=== PATIENT | male | born 1945 | race African-American/Black ===

== ENCOUNTER 2018-08-25 07:11 | Inpatient (IN) ==
--- NOTE | 2018-08-25 07:35 | ED ---
HPI General Chief Complaint: Abdominal Pain Stated Complaint: stomach complaint Time Seen by Provider: 08/25/18 07:35 History of Present Illness HPI narrative: Patient presents to the emergency department complaining of abdominal pain. Pain is described as being diffuse, started approximately 3 weeks ago, decreased appetite, pain is intermittent, approximately 30 minutes to 1 hour duration, no alleviating or aggravating factors. States he has had similar pain like this in the past. Is also reporting intermittent swollen neck this been present for "a while." He denies fever, chills, nausea, vomiting , diarrhea, constipation, difficulty swallowing, difficulty breathing, or recent travel. He is unsure if he has lost any weight. Related Data Home Medications Medication Instructions Recorded Confirmed No Known Home Medications 08/25/18 08/25/18 Allergies Allergy/AdvReac Type Severity Reaction Status Date / Time No Known Allergies Allergy Verified 08/25/18 07:17 Review of Systems ROS: all other systems reviewed are negative [facility] Social History Social History Substance History: Active Abuse Smoking Status: Current every day smoker Tobacco Type: Cigarettes How Often Do You Have a Drink Containing Alcohol: Never Recent Travel in [facility] within the Last 8 Weeks: No Recent Out of Country Travel within the Last 8 Weeks: No Substance Abuse Detail Marijuana: Substance Use Status: Active Route Used Substance Abuse: Inhalation Substance Frequency: daily Immunization History Tetanus Immunization: Unsure Exam Narrative Exam Narrative: GENERAL: No acute distress. SKIN: Focused skin assessment warm/dry. HEAD: Atraumatic. Normocephalic. EYES: Pupils equal and round. No scleral icterus. No injection or drainage. ENT: No nasal bleeding or discharge. Mucous membranes pink and moist. NECK: Trachea midline. No JVD. swelling noted anterior neck CARDIOVASCULAR: Regular rate and rhythm. No murmur appreciated. RESPIRATORY: No accessory muscle use. Clear to auscultation. Breath sounds equal bilaterally. GASTROINTESTINAL: Abdomen soft, right upper quadrant epigastric area tender, nondistended. + cholecystectomy surgical scar MUSCULOSKELETAL: No obvious deformities. No clubbing. No cyanosis. No edema. NEUROLOGICAL: Awake and alert. No obvious cranial nerve deficits. Motor grossly within normal limits. Normal speech. PSYCHIATRIC: Appropriate mood and affect; insight and judgment normal. Course Initial Documented Vital Signs Temperature 98.9 F 08/25/18 07:13 Pulse Rate 86 08/25/18 07:13 Respiratory Rate 16 08/25/18 07:13 Blood Pressure 161/70 H 08/25/18 07:13 Pulse Oximetry 98 08/25/18 07:13 Last Documented Vital Signs Temperature 98.9 F 08/25/18 07:13 Pulse Rate 93 H 08/25/18 11:35 Respiratory Rate 20 08/25/18 11:35 Blood Pressure 112/57 L 08/25/18 11:35 Pulse Oximetry 97 08/25/18 11:35 Medical Decision Making MDM Narrative Medical decision making narrative: Patient presents to the emergency department complaining of abdominal pain and neck swelling. Patient placed on a cardiac rehab nurse, continuous pulse ox, and IV access obtained. At the time of my assessment patient states that he does not eat need any medication for pain. Labs, ECG, and CT abdomen and pelvis and CT neck both with IV contrast ordered. Spoke to radiologist who reviewed the patient's CT scan. He does not believe that the air in the biliary tract is pathologic. Thinks it may be secondary to status post cholecystectomy. I have admitted the patient to the hospitalist for metastatic workup as patient has no primary care provider. Medical Screen Exam Complete: Yes Emergency Medical Condition: Yes Lab Data Result diagrams: 08/25/18 07:43 08/25/18 07:43 Lab Results 08/25/18 08/25/18 08/25/18 Range/Units 07:43 07:43 07:43 WBC 9.1 (4.0-11.0) th/mm3 RBC 3.73 L (4.50-5.90) mil/mm3 Hgb 10.1 L (13.0-17.0) gm/dL Hct 31.4 L (39.0-51.0) % MCV 84.2 (80.0-100.0) fL MCH 27.1 (27.0-34.0) pg MCHC 32.2 (32.0-36.0) % RDW 13.3 (11.6-17.2) % Plt Count 332 (150-450) th/mm3 MPV 6.1 L (7.0-11.0) fL Neut % (Auto) 63.7 (16.0-70.0) % Lymph % (Auto) 21.6 (9.0-44.0) % [place] % (Auto) 14.2 H (0.0-8.0) % Eos % (Auto) 0.3 (0.0-4.0) % Baso % (Auto) 0.2 (0.0-2.0) % Neut # (Auto) 5.8 (1.8-7.7) th/mm3 Lymph # (Auto) 2.0 (1.0-4.8) th/mm3 [place] # (Auto) 1.3 H (0.0-0.9) th/mm3 Eos # (Auto) 0.0 (0.0-0.4) th/mm3 Baso # (Auto) 0.0 (0.0-0.2) th/mm3 WBC Differential . Differential Comment Auto diff final PT 12.7 H (9.8-11.6) sec INR 1.3 Ratio APTT 26.6 (24.3-30.1) sec Sodium 137 (136-145) meq/L Potassium 3.9 (3.5-5.1) meq/L Chloride 103 (98-107) meq/L Carbon Dioxide 26.5 (21.0-32.0) meq/L Anion Gap 8 (5-15) meq/L BUN 14 (7-18) mg/dL Creatinine 0.89 (0.60-1.30) mg/dL Estimated GFR Greater than 89 (>89) mL/min Random Glucose 109 H (74-106) mg/dL Calcium 8.5 (8.5-10.1) mg/dL Magnesium 2.2 (1.5-2.5) mg/dL Total Bilirubin 1.1 H (0.2-1.0) mg/dL AST 86 H (15-37) U/L ALT 43 (12-78) U/L Alkaline Phosphatase 190 H (45-117) U/L Troponin I Less than 0.02 L (0.02-0.05) ng/mL Total Protein 7.4 (6.4-8.2) g/dL Albumin 2.9 L (3.4-5.0) g/dL Lipase 70 L (73-393) U/L Imaging Data Radiologist's impression: Abdomen/Pelvis CT 08/25/18 07:30 CONCLUSION: 1. Numerous scattered new low-attenuation liver lesions characteristic of metastasis. 2. Evidence of prior bowel resection. 3. Status post cholecystectomy. There is a small amount of air in the central biliary system. Soft Tissue Neck CT 08/25/18 07:30 CONCLUSION: 1. Probable large goiter with both cystic and solid elements largest on the left neck. 2. Correlation suggested. ECG Data Attestation: I personally reviewed and interpreted this ECG as follows: (Sinus rhythm, rate 82, left axis deviation, QTC 393, normal intervals, wave in lead III and aVF (similar to ECG on 03/29/12)) Discharge Plan Discharge Disposition Patient Disposition: 30 Still Patient Discharge Condition Condition: Stable Discharge Details Diagnosis: Liver metastasis, Thyroid mass Physicians Team ED Provider: Gricel Delong Primary Care Provider: Primary Care Diana Morales Attending Provider: Gayle Rey Status ED Status: Admitted Observation Patient
[2018-08-25 07:55] LABS: Baso % (Auto) 0.2 % (0.0-2.0); Eos % (Auto) 0.3 % (0.0-4.0); Hematocrit 31.4 % (39.0-51.0); Hemoglobin 10.1 gm/dL (13.0-17.0); Lymph % (Auto) 21.6 % (9.0-44.0); Mean Corpuscular HGB Conc 32.2 % (32.0-36.0); Mean Corpuscular Hemoglobin 27.1 pg (27.0-34.0); Mean Corpuscular Volume 84.2 fL (80.0-100.0); Mean Platelet Volume 6.1 fL (7.0-11.0); Mono # (Auto) 1.3 th/mm3 (0.0-0.9); Mono % (Auto) 14.2 % (0.0-8.0); Neut # (Auto) 5.8 th/mm3 (1.8-7.7); Neut % (Auto) 63.7 % (16.0-70.0); Platelet Count 332 th/mm3 (150-450); Red Blood Count 3.73 mil/mm3 (4.50-5.90); Red Cell Distribution Width 13.3 % (11.6-17.2); White Blood Count 9.1 th/mm3 (4.0-11.0)
[2018-08-25 08:04] LABS: Activated Partial Thrombo Time 26.6 sec (24.3-30.1); INR 1.3 Ratio; Prothrombin Time 12.7 sec (9.8-11.6)
[2018-08-25 08:07] LABS: Alanine Aminotransferase 43 U/L (12-78); Albumin 2.9 g/dL (3.4-5.0); Anion Gap 8 meq/L (5-15); Aspartate Aminotransferase 86 U/L (15-37); Blood Urea Nitrogen 14 mg/dL (7-18); Calcium 8.5 mg/dL (8.5-10.1); Carbon Dioxide 26.5 meq/L (21.0-32.0); Chloride 103 meq/L (98-107); Glomerular Filtration Rate Greater Than 89 mL/min (>89); Glucose,Random 109 mg/dL (74-106); Lipase 70 U/L (73-393); Magnesium 2.2 mg/dL (1.5-2.5); Potassium 3.9 meq/L (3.5-5.1); Sodium 137 meq/L (136-145)
[2018-08-25 08:12] LABS: Alkaline Phosphatase 190 U/L (45-117); Total Protein 7.4 g/dL (6.4-8.2)
--- NOTE | 2018-08-25 10:00 | CT ---
EXAM DATE: 08/25/2018 9:48 AM EDT AGE/SEX: 72 years / Male INDICATIONS: Right upper quadrant pain. CLINICAL DATA: This is the patient's initial encounter. Patient reports that signs and symptoms have been present for 3 weeks and indicates a pain score of 6/10. MEDICAL/SURGICAL HISTORY: None. Cholecystectomy. ORAL CONTRAST: No oral contrast ingested. RADIATION DOSE: 5.79 CTDI (mGy) COMPARISON: [facility] [place], CT ABDOMEN & PELVIS W CONTRAST, 03/26/2012. . TECHNIQUE: Multiple contiguous axial images were obtained through the abdomen and pelvis following b olus infusion of 94 ml Omnipaque 350 (iohexol) nonionic water-soluble contrast as a cumulative dose for multiple exams. No oral contrast ingested. Using automated exposure control and adjustment of t he mA and/or kV according to patient size, radiation dose was kept as low as reasonably achievable to obtain optimal diagnostic quality images. DICOM format image data is available electronically for r eview and comparison. FINDINGS: Lower Lungs: The visualized lower lungs are clear. Liver: There are multiple new low-attenuation lesions throughout the right and left lobe of the liver . There are numerous scattered lesions with several areas of low attenuation measuring up to 4 cm. Th ere is no intrahepatic ductal dilatation. Patient is status post cholecystectomy. There is a small am ount of air in the central biliary system. Spleen: Homogeneous density without enlargement. Pancreas: Unremarkable without mass or calcification. Kidneys: Normal in size and shape. No evidence of mass or hydronephrosis. Adrenal Glands: Unremarkable. Aorta: The aorta and proximal iliac vessels are grossly unremarkable without aneurysmal dilation. Bowel/Mesentery: No oral contrast was given limiting the sensitivity exam. There are postoperative c hanges with anastomotic martita in the small bowel. Abdominal Wall: Intact. Retroperitoneum: No evidence of adenopathy in the retrocrural, para-aortic, or deep pelvic regions. Bladder: Contours are smooth. Reproductive Organs: No abnormal masses or calcifications seen. Inguinal: The inguinal region is unremarkable without evidence of adenopathy. Bony Structures: Unremarkable. CONCLUSION: 1. Numerous scattered new low-attenuation liver lesions characteristic of metastasis. 2. Evidence of prior bowel resection. 3. Status post cholecystectomy. There is a small amount of air in the central biliary system. Electronically signed by: Surinder Crooks MD 08/25/2018 9:58 AM EDT
--- NOTE | 2018-08-25 10:01 | CT ---
EXAM DATE: 08/25/2018 9:51 AM EDT AGE/SEX: 72 years / Male INDICATIONS: Bilateral swelling of neck. CLINICAL DATA: This is the patient's initial encounter. Patient reports that signs and symptoms have been present for 2 months and indicates a pain score of 6/10. MEDICAL/SURGICAL HISTORY: None. Cholecystectomy. RADIATION DOSE: 13.60 CTDI (mGy) COMPARISON: No prior exams available for comparison. TECHNIQUE: Helical acquisition was performed using a multirow detector CT scanner during the adminis tration of 94 ml Omnipaque 350 (iohexol) nonionic water-soluble contrast as a cumulative dose for mu ltiple exams. Using automated exposure control and adjustment of the mA and/or kV according to patie nt size, radiation dose was kept as low as reasonably achievable to obtain optimal diagnostic quality images. DICOM format image data is available electronically for review and comparison. FINDINGS: Nasopharynx and oropharynx unremarkable. The base of the tongue is symmetric. Right neck: There is no suspicious adenopathy in the right neck. Patient is a very prominent thyroid including both right an d left lobes and appears to be a goiter. Left neck: There is no suspicious adenopathy Large nodular thyroid suspicious for goiter in this 72-year-old. Correlation suggested. CONCLUSION: 1. Probable large goiter with both cystic and solid elements largest on the left neck. 2. Correlation suggested. Electronically signed by: Pb Dowling MD 08/25/2018 9:59 AM EDT
[2018-08-25] MEDS ORDERED: Bisacodyl 10 MG Supp RECTAL PRN (12:11)
--- NOTE | 2018-08-25 12:17 | P.HP ---
History of Present Illness Primary Care Physician: No Primary Care Physician Chief Complaint: abd pain History of Present Illness: Patient is a pleasant frail 72 yo AA male, who presented to the emergency department complaining of abdominal pain. Pain is described as being diffuse, started approximately 3 weeks ago, associated with decreased appetite, pain is intermittent, approximately 30 minutes to 1 hour duration, no alleviating or aggravating factors. States he has had similar pain like this in the past. Is also reporting intermittent swollen neck this been present for "a while." Says he has lost weight but doemst know kow much , says clothes are loose. He denies fever, chills, nausea, vomiting, diarrhea, constipation, difficulty swallowing. He is breathing well no wheezing and he is satting well on room air. Review of Systems All other systems reviewed negative except as stated in HPI PMFSH - History History Provided By: Patient - Medical History Medical History: Medical History (Last Reviewed 08/25/18 @ 16:33 by Gayle Rey MD) Gallstones - Surgical History Surgical History: Surgical History (Last Updated 08/25/18 @ 16:33 by Gayle Rey MD) Cholecystitis (Acute) - Family History Family History: Family History (Last Updated 08/25/18 @ 16:34 by Gayle Rey MD) Other Family history normal - Social History I have reviewed the patient's Social History: Yes - Tobacco History Tobacco Use In Past 30 Days: Yes Smoking Status: Current every day smoker Tobacco Type: Cigarettes (1 pack per month) - Alcohol History How Often Do You Have a Drink Containing Alcohol: Never (quit 2 year ago) - Substance Use History Substance History: Active Abuse - Substance Use Type Marijuana Status: Active Route Used: Inhalation Frequency: daily - Travel History Recent Travel in the [place] Within the Last 8 Weeks: No Recent Travel Out of the Country Within the Last 8 Weeks: No - Immunization History Tetanus Immunization: Unsure Medications and Allergies Active Medications: Active Medications Al Hydroxide/Mg Hydroxide (Milk Of Magnesia Liq) 30 ml PO Q12H PRN PRN Reason: Mild Constipation Bisacodyl (Dulcolax Supp) 10 mg RECTAL DAILY PRN PRN Reason: SEVERE CONSITIPATION Lactulose (Lactulose Liq) 30 ml PO DAILY PRN PRN Reason: SEVERE CONSITIPATION Senna/Docusate Sodium (Alexandra-Colace) 1 tab PO BID ELIGIO Sennosides (Senokot) 17.2 mg PO Q12H PRN PRN Reason: Moderate Constipation Sodium Chloride (Ns Flush) 2 ml IV.FLUSH PRN PRN PRN Reason: FLUSH AFTER USING IV ACCESS Allergies Allergy/AdvReac Type Severity Reaction Status Date / Time No Known Allergies Allergy Verified 08/25/18 07:17 Home Medications Medication Instructions Recorded Confirmed Type No Known Home Medications 08/25/18 08/25/18 History Exam Vital signs: Vital Signs 08/25/18 07:13 08/25/18 07:48 08/25/18 07:53 Temperature 98.9 F Pulse Rate 86 82 82 Respiratory Rate 16 20 14 Blood Pressure 161/70 H 133/66 133/66 Pulse Oximetry 98 98 98 08/25/18 11:35 Temperature Pulse Rate 93 H Respiratory Rate 20 Blood Pressure 112/57 L Pulse Oximetry 97 Intake & Output 08/24/18 08/25/18 08/25/18 18:59 06:59 18:59 Weight 58.967 kg Narrative: GENERAL: Pleasant frail cachectic AA elderly male, in bed, appesrs in nad. SKIN: Warm and dry. HEAD: Bitemporal waisting. Atraumatic. Normocephalic. EYES: Pupils equal and round. No scleral icterus. No injection or drainage. ENT: No nasal bleeding or discharge. Mucous membranes dry. NECK: Trachea midline. No JVD. CARDIOVASCULAR: Regular rate and rhythm. RESPIRATORY: No accessory muscle use. Clear to auscultation. Breath sounds equal bilaterally. GASTROINTESTINAL: Abdomen soft, diffuse tenderness. MUSCULOSKELETAL: Weak results engineer. Muscle waisting. Extremities without clubbing, cyanosis, or edema. No obvious deformities. NEUROLOGICAL: Awake and alert. No obvious cranial nerve deficits. Motor grossly within normal limits. Five out of 5 muscle strength in the arms and legs. Normal speech. PSYCHIATRIC: Appropriate mood and affect; insight and judgment normal. Results - Labs CBC & Chem 7: 08/25/18 07:43 08/25/18 07:43 Labs: Laboratory Results - last 24 hr 08/25/18 08/25/18 08/25/18 07:43 07:43 07:43 WBC 9.1 RBC 3.73 L Hgb 10.1 L Hct 31.4 L MCV 84.2 MCH 27.1 MCHC 32.2 RDW 13.3 Plt Count 332 MPV 6.1 L Neut % (Auto) 63.7 Lymph % (Auto) 21.6 [place] % (Auto) 14.2 H Eos % (Auto) 0.3 Baso % (Auto) 0.2 Neut # (Auto) 5.8 Lymph # (Auto) 2.0 [place] # (Auto) 1.3 H Eos # (Auto) 0.0 Baso # (Auto) 0.0 WBC Differential . Differential Comment Auto diff final PT 12.7 H INR 1.3 APTT 26.6 Sodium 137 Potassium 3.9 Chloride 103 Carbon Dioxide 26.5 Anion Gap 8 BUN 14 Creatinine 0.89 Estimated GFR Greater than 89 Random Glucose 109 H Calcium 8.5 Magnesium 2.2 Total Bilirubin 1.1 H AST 86 H ALT 43 Alkaline Phosphatase 190 H Troponin I Less than 0.02 L Total Protein 7.4 Albumin 2.9 L Lipase 70 L - Imaging Impressions Abdomen/Pelvis CT 08/25/18 07:30 CONCLUSION: 1. Numerous scattered new low-attenuation liver lesions characteristic of metastasis. 2. Evidence of prior bowel resection. 3. Status post cholecystectomy. There is a small amount of air in the central biliary system. Soft Tissue Neck CT 08/25/18 07:30 CONCLUSION: 1. Probable large goiter with both cystic and solid elements largest on the left neck. 2. Correlation suggested. Caprini VTE Risk Assessment Caprini VTE Risk Assessment: No/Low Risk (score <= 1) Caprini Risk Assessment Model: Point Value = 1 Point Value = 2 Point Value = 3 Point Value = 5 Age 41-60 Minor surgery BMI > 25 kg/m2 Swollen legs Varicose veins or History of unexplained or recurrent spontaneous Oral contraceptives or hormone replacement Sepsis (< 1 month) Serious lung disease, including pneumonia (< 1 month) Abnormal pulmonary function Acute myocardial infarction Congestive heart failure (< 1 month) History of inflammatory bowel disease Medical patient at bed rest Age 61-74 Arthroscopic surgery Major open surgery (> 45 min) Laparoscopic surgery (> 45 min) Malignancy Confined to bed (> 72 hours) Immobilizing plaster cast Central venous access Age >= 75 History of VTE Family history of VTE Factor V Leiden Prothrombin [id number] Lupus anticoagulant Anticardiolipin antibodies Elevated serum homocysteine Heparin-induced thrombocytopenia Other congenital or acquired thrombophilia Stroke (< 1 month) Elective arthroplasty Hip, pelvis, or leg fracture Acute spinal cord injury (< 1 month) Prophylaxis Regimen: Total Risk Factor Score Risk Level Prophylaxis Regimen 0-1 Low Early ambulation 2 Moderate Order ONE of the following: *Sequential Compression Device (SCD) *Heparin 5000 units SQ BID 3-4 Higher Order ONE of the following medications: *Heparin 5000 units SQ TID *Enoxaparin/Lovenox 40 mg SQ daily (WT < 150 kg, CrCl > 30 mL/min) *Enoxaparin/Lovenox 30 mg SQ daily (WT < 150 kg, CrCl > 10-29 mL/min) *Enoxaparin/Lovenox 30 mg SQ BID (WT < 150 kg, CrCl > 30 mL/min) AND/OR *Sequential Compression Device (SCD) 5 or more Highest Order ONE of the following medications: *Heparin 5000 units SQ TID (Preferred with Epidurals) *Enoxaparin/Lovenox 40 mg SQ daily (WT < 150 kg, CrCl > 30 mL/min) *Enoxaparin/Lovenox 30 mg SQ daily (WT < 150 kg, CrCl > 10-29 mL/min) *Enoxaparin/Lovenox 30 mg SQ BID (WT < 150 kg, CrCl > 30 mL/min) AND *Sequential Compression Device (SCD) Assessment and Plan - Plan Liver metastasis Thyroid mass Anorexia. Moderate to severe protein calorie malnutrition with bitemporal waisting, muscle waisting, weak handgrip Elevated AST Imaging reviewed and findings discussed with the ED physician and the patient CT A/P reviewed 1. Numerous scattered new low-attenuation liver lesions characteristic of metastasis. 2. Evidence of prior bowel resection. 3. Status post cholecystectomy. There is a small amount of air in the central biliary system. CT neck reviewed 1. Probable large goiter with both cystic and solid elements largest on the left neck. 2. Correlation suggested. ECG reviewed Sinus rhythm, rate 82, left axis deviation, no ischemic changes Consult hem onc for eval. Patient has no insurance Start IVF NS as patient with low PO intake Consult display designer Regular diet, add ensure tid Regent po for pain , morphine IV if not able to tolerate PO DVT ppx SCD/TEDs Discussed Condition With: patient, nurse, ED physician
--- NOTE | 2018-08-25 13:25 | ECG ---
Date Performed: 08/25/2018 Time Performed: 07:37:45 PTAGE: 72 years EKG: Sinus rhythm NORMAL ECG PREVIOUS TRACING : 03/29/2012 11.04 DOCTOR: Mayo Gomez Interpretating Date/Time 08/25/2018 13:24:22
[2018-08-25] MEDS: Sod Chloride 0.9% Inj 1,000 ML IV.CONT SCH (17:12)
[2018-08-25] MEDS ORDERED: Morphine Sulfate Inj 2 MG/ML Vial IV.PUSH PRN (17:19)
--- NOTE | 2018-08-25 20:00 | MB ---
cc: Jesse Cason MD DATE: 08/25/2018 REASON FOR CONSULTATION: Oncology consulted for pain in a patient with liver mass. HISTORY OF PRESENT ILLNESS: The patient is a 72-year-old male from [place] who presented to the hospital complaining of right upper quadrant pain, which has been going on for about 3 weeks. He states that the pain is intermittent in nature. It is worse if he is hungry. He has decreased appetite and lost about 5 pounds. He has no insurance and did not follow up with any physician. He denies any fever or chills. He denies any night sweats. He has no chest pain, no shortness of breath. He has intermittent cough, occasionally bringing up some whitish sputum. He denies any nausea or vomiting. Denies any diarrhea or constipation. He has no melena or hematochezia. Denies change in urinary habits. He denies any bone pain. He stated he has a neck mass for more than 5 years. PAST MEDICAL HISTORY: 1. Gallstone. 2. Neck mass, possible goiter. PAST SURGICAL HISTORY: Cholecystectomy. FAMILY HISTORY: No cancer in her family. He has a brother who is . He has 4 daughters and 1 son, all healthy. SOCIAL HISTORY: He smokes marijuana and smokes tobacco occasionally. He drinks occasionally. He is from [place] and moved here about 6 years ago. ALLERGIES: NO KNOWN DRUG ALLERGIES. CURRENT MEDICATIONS: Alexandra-Colace. REVIEW OF SYSTEMS: CONSTITUTIONAL: As above. EYES: Negative. ENT: Negative. CARDIOVASCULAR: No chest pressure or palpitation. RESPIRATORY: As above. GASTROINTESTINAL: As above. GENITOURINARY: Negative. MUSCULOSKELETAL: Negative. HEMATOLOGIC: Negative. ENDOCRINE: Negative. DERMATOLOGIC: Negative. PSYCHIATRIC: Negative. NEUROLOGIC: Negative. PHYSICAL EXAMINATION: VITAL SIGNS: Temperature 98.6, blood pressure 143/69, O2 saturation 97% on room air. GENERAL: He is alert, oriented x 3, in no acute distress. HEENT: Atraumatic, normocephalic. Pupils are equal, round, reactive to light. Extraocular muscles are intact. No scleral icterus. Oropharynx, dry mucosa. No lesions or thrush. NECK: No thyromegaly. No palpable mass of thyroid. LYMPHATIC: No palpable cervical, clavicular, axillary, inguinal or cervical, axillary or inguinal lymph nodes. . NECK: He has a large soft cystic mass in the anterior neck, nontender. LYMPHATIC: No palpable cervical, clavicular, axillary or inguinal lymph nodes. CARDIOVASCULAR: Regular S1, S2. No murmur. LUNGS: Clear to auscultation bilaterally. ABDOMEN: Soft, a little tender right upper quadrant. No rebound or rigidity. I could not palpate liver or spleen. EXTREMITIES: No cyanosis, clubbing, or edema. No calf tenderness. BACK: No paravertebral tenderness. SKIN: No rash or petechiae. NEUROLOGIC: Nonfocal. LABORATORY DATA REVIEW: Blood work during this hospital stay. Liver transaminases normal. ASSESSMENT: 1. Abdominal pain, which re-started about 3 weeks ago. He has had constitutional symptoms with weight loss and decreased appetite. CT abdomen and pelvis on presentation showed numerous hypodense lesions suggestive of metastatic disease. There is no obvious adenopathy or masses in the abdomen or pelvis. The patient denies any change in bowel habits. I personally reviewed the CT scan with the patient. I told him this is suggestive of metastatic cancer. Recommend getting a CT of the chest to see if there are any other masses. We will check a tumor marker. We will consult radiology to biopsy the liver lesion. He may also need further GI workup to rule out primary GI cancer. He did have some questions today which were answered. 2. Thyroid mass. A CT of the neck showed a large nodular thyroid with cystic and solid component. The patient stated he had the neck mass for more than 5 years. This appeared to be a goiter, but may eventually need a biopsy. RECOMMENDATIONS: 1. Check CT of the chest. 2. Check tumor markers. 3. Consult radiology for biopsy of liver mass. 4. We will need social work case manager to assist patient in arranging outpatient followup. Thank you Dr. Rey for asking me to see this patient. MD ADENIKE Gudino/jessica , 06:07 PM , 06:19 PM LEONARDO
[2018-08-25] MEDS: Sodium Chloride 0.9% 2 ML Flush BID IV.FLUSH SCH (22:00)
[2018-08-25] MEDS: Senna/Docusate Sodium 8.6/50 MG Tablet PO SCH (22:00)
[2018-08-26] MEDS: Acetaminophen 325 MG Tablet PO PRN (00:19)
[2018-08-26] MEDS: Sod Chloride 0.9% Inj 1,000 ML IV.CONT SCH ×2 (04:44→18:12)
[2018-08-26 07:26] LABS: Baso % (Auto) 0.2 % (0.0-2.0); Eos % (Auto) 0.5 % (0.0-4.0); Hematocrit 27.9 % (39.0-51.0); Hemoglobin 9.4 gm/dL (13.0-17.0); Lymph # (Auto) 2.2 th/mm3 (1.0-4.8); Lymph % (Auto) 25.8 % (9.0-44.0); Mean Corpuscular HGB Conc 33.6 % (32.0-36.0); Mean Corpuscular Hemoglobin 27.6 pg (27.0-34.0); Mean Corpuscular Volume 82.2 fL (80.0-100.0); Mean Platelet Volume 6.2 fL (7.0-11.0); Mono # (Auto) 1.3 th/mm3 (0.0-0.9); Mono % (Auto) 15.2 % (0.0-8.0); Neut % (Auto) 58.3 % (16.0-70.0); Platelet Count 320 th/mm3 (150-450); Red Cell Distribution Width 13.1 % (11.6-17.2); White Blood Count 8.5 th/mm3 (4.0-11.0)
[2018-08-26 07:54] LABS: Albumin 2.5 g/dL (3.4-5.0); Anion Gap 8 meq/L (5-15); Aspartate Aminotransferase 77 U/L (15-37); Blood Urea Nitrogen 13 mg/dL (7-18); Calcium 8.3 mg/dL (8.5-10.1); Carbon Dioxide 26.1 meq/L (21.0-32.0); Chloride 104 meq/L (98-107); Glomerular Filtration Rate Greater Than 89 mL/min (>89); Glucose,Random 104 mg/dL (74-106); Potassium 4.2 meq/L (3.5-5.1); Sodium 138 meq/L (136-145)
[2018-08-26 07:57] LABS: Alpha Fetoprotein Tumor Marker 2.6 ng/mL (0.5-8.0); Carcinoembryonic Antigen 4.3 ng/mL (0.2-5.0)
[2018-08-26 07:58] LABS: Alanine Aminotransferase 39 U/L (12-78); Alkaline Phosphatase 183 U/L (45-117); Total Protein 6.8 g/dL (6.4-8.2)
[2018-08-26 08:02] LABS: Prostate Specific Antigen 0.6 ng/mL (0.00-4.00)
[2018-08-26 08:32] LABS: Cancer Antigen 19-9 73.4 U/mL (0.0-35.0)
[2018-08-26] MEDS ORDERED: fentaNYL Citrate Inj 100 MCG/2 ML Ampul ONE (09:16)
--- NOTE | 2018-08-26 09:52 | P.RAD ---
Post Procedure Progress Note - Pre Procedure Diagnosis (1) Liver metastasis - Post Procedure Diagnosis (1) Liver metastasis - Procedure Information Procedure Date: 08/26/18 Supervising Radiologist: Orion Dowling MD Estimated blood loss (mL): 0 Anesthesia: Local, Conscious Sedation - Plan of Activity Patient to Unit: ROPU Patient Condition: Good Additional Comments: Liver biopsy under ultrasound completed. 2 18ga core samples taken from the largest right lobe mass. Full report to follow See PACS Report for procedural detail/treatment.
[2018-08-26] MEDS ORDERED: Lidocaine PF 1% Inj 5 ML Vial ONE ×2 (11:46→11:47)
--- NOTE | 2018-08-26 12:27 | CT ---
EXAM DATE: 08/26/2018 12:20 PM EDT AGE/SEX: 72 years / Male INDICATIONS: Evaluate for mass. CLINICAL DATA: This is the patient's initial encounter. Patient reports that signs and symptoms have been present for 1 day and indicates a pain score of 2/10. MEDICAL/SURGICAL HISTORY: Cholelithasis. None. RADIATION DOSE: 7.58 CTDI (mGy) COMPARISON: No prior exams available for comparison. TECHNIQUE: Multiple contiguous axial images were obtained through the chest during bolus infusion of 70 ml Omnipaque 350 (iohexol) nonionic water-soluble contrast as a single exam dose. Images were obtained in suspended respiration using multiple row detector helical technique. Using automated exp osure control and adjustment of the mA and/or kV according to patient size, radiation dose was kept a s low as reasonably achievable to obtain optimal diagnostic quality images. DICOM format image data is available electronically for review and comparison. FINDINGS: Lungs: The lungs are symmetrically aerated. No infiltrates or nodular densities are seen. Mild emph ysema. Mediastinum: There is good visualization of the great vessels of the middle mediastinum. No evidenc e of mediastinal or hilar adenopathy/mass. Pleurae: No evidence of focal thickening or pleural effusion. Axillae: Unremarkable. Bony Structures: Unremarkable. Miscellaneous: The examination was extended to include the upper abdomen, and both adrenal glands ar e normal in size and configuration. Enlarged heterogeneous thyroid gland containing multiple nodules. Nodules are larger on the left lobe. CONCLUSION: 1. Mild emphysema without infiltrate or mass. 2. Multiple metastatic lesions in the liver. 3. Heterogeneous enlarged thyroid gland containing multiple nodules greater on the left. Electronically signed by: Jakub Bright MD 08/26/2018 12:26 PM EDT
--- NOTE | 2018-08-26 13:22 | US ---
EXAM DATE: 08/26/2018 10:06 AM EDT AGE/SEX: 72 years / Male INDICATIONS: Mass seen on prior CT. CLINICAL DATA: This is the patient's initial encounter. Patient reports that signs and symptoms have been present for 2 days and indicates a pain score of 0/10. MEDICAL/SURGICAL HISTORY: . Gallstones. Cholecystitis. None. COMPARISON: [facility] [place], CT ABDOMEN & PELVIS W CONTRAST, 08/25/2018. . MEDICATION(S): Fentanyl inversed. fentanyl (Sublimaze) IV ORGAN: Right liver lobe. SPECIMEN(S): Two core specimen(s) submitted for pathologic evaluation. DEVICE(S): 18 gauge Temno needle The possibility does exist that the tissue obtained will be non-diagnostic. If the sample is non-diag nostic, a repeat biopsy or surgical biopsy may need to be performed. TECHNIQUE: 1. Ultrasound guidance for needle biopsy. 2. Needle biopsy. 3. 4. The risks, benefits and alternatives to the procedure were explained and verbal and written consent w as obtained. The site was prepped in sterile fashion. Full sterile technique was used, including ca p, mask, sterile gloves and gown and a large sterile sheet. Hand hygiene and 2% chlorhexidine and/or betadine/alcohol prep was utilized per protocol for cutaneous antisepsis. The skin and subcutaneous tissues were infiltrated with local anesthetic solution. Sterile gel and sterile probe cover were u tilized for ultrasound guidance. With the patient on the ultrasound table, images were obtained. Numerous hyperechoic lesions were see n within the liver. A needle was advanced into the identified target and 2 18-gauge core specimens were obtained and subm itted for pathologic evaluation. The patient tolerated the procedure well and left the ultrasound suite in stable condition. CONCLUSION: 1. Uncomplicated ultrasound-guided biopsy of the patient's liver metastatic disease. Electronically signed by: Orion Dowling MD 08/26/2018 1:21 PM EDT
[2018-08-26] MEDS: Sodium Chloride 0.9% 2 ML Flush BID IV.FLUSH SCH ×2 (13:25→21:33)
[2018-08-26] MEDS: Senna/Docusate Sodium 8.6/50 MG Tablet PO SCH ×2 (13:25→21:33)
--- NOTE | 2018-08-26 14:14 | P.PNIM ---
Physical Exam Vital signs: Vital Signs 08/25/18 15:36 08/25/18 20:00 08/26/18 00:00 Temperature 98.6 F 99.7 F H 101.4 F H Pulse Rate 84 88 88 Respiratory Rate 20 17 20 Blood Pressure 143/69 H 111/54 L 110/55 L Pulse Oximetry 97 97 97 08/26/18 04:00 08/26/18 09:15 08/26/18 12:00 Temperature 98.7 F 98.3 F 98.0 F Pulse Rate 78 90 83 Respiratory Rate 16 18 16 Blood Pressure 122/69 162/77 H 141/72 H Pulse Oximetry 98 99 97 Intake & Output 08/25/18 08/26/18 08/26/18 18:59 06:59 18:59 Intake Total 591 / 591 1120 / 1120 Balance 591 / 591 1120 / 1120 Weight 63.18 kg 63.18 kg Intake: IV 1000 / 1000 NS Inj 1,000 ML @ 84 mls/hr IV. 1000 / 1000 CONT .[id number] [facility] Rx#:[id number] Oral 591 / 591 120 / 120 Other: # Voids 2 Weight On Admission 63.18 kg Results - Labs CBC & Chem 7: 08/26/18 06:13 08/26/18 06:13 Laboratory Results - last 24 hr 08/25/18 08/26/18 08/26/18 07:43 06:13 06:13 WBC RBC Hgb Hct MCV MCH MCHC RDW Plt Count MPV Neut % (Auto) Lymph % (Auto) [place] % (Auto) Eos % (Auto) Baso % (Auto) Neut # (Auto) Lymph # (Auto) [place] # (Auto) Eos # (Auto) Baso # (Auto) WBC Differential Differential Comment Sodium Potassium Chloride Carbon Dioxide Anion Gap BUN Creatinine Estimated GFR Random Glucose Calcium Total Bilirubin AST ALT Alkaline Phosphatase Total Protein Albumin Prealbumin 7 L Tumor Marker AFP 2.6 Carcinoembryonic Ag 4.3 CA 19-9 Antigen 73.4 H Prostate Specific Ag 0.60 08/26/18 08/26/18 06:13 06:13 WBC 8.5 RBC 3.40 L Hgb 9.4 L Hct 27.9 L MCV 82.2 MCH 27.6 MCHC 33.6 RDW 13.1 Plt Count 320 MPV 6.2 L Neut % (Auto) 58.3 Lymph % (Auto) 25.8 [place] % (Auto) 15.2 H Eos % (Auto) 0.5 Baso % (Auto) 0.2 Neut # (Auto) 5.0 Lymph # (Auto) 2.2 [place] # (Auto) 1.3 H Eos # (Auto) 0.0 Baso # (Auto) 0.0 WBC Differential . Differential Comment Auto diff final Sodium 138 Potassium 4.2 Chloride 104 Carbon Dioxide 26.1 Anion Gap 8 BUN 13 Creatinine 0.78 Estimated GFR Greater than 89 Random Glucose 104 Calcium 8.3 L Total Bilirubin 1.2 H AST 77 H ALT 39 Alkaline Phosphatase 183 H Total Protein 6.8 D Albumin 2.5 L Prealbumin Tumor Marker AFP Carcinoembryonic Ag CA 19-9 Antigen Prostate Specific Ag - Imaging Impressions Chest CT 08/26/18 00:00 CONCLUSION: 1. Mild emphysema without infiltrate or mass. 2. Multiple metastatic lesions in the liver. 3. Heterogeneous enlarged thyroid gland containing multiple nodules greater on the left. Liver Biopsy Ultrasound 08/26/18 00:00 CONCLUSION: 1. Uncomplicated ultrasound-guided biopsy of the patient's liver metastatic disease.
--- NOTE | 2018-08-26 14:23 | P.PNIM ---
Subjective Interval history: No distress today. Imaging of chest shows no metastasis in the lungs/ mediastinum. Liver metastasis is visualized on chest imaging. No pain complaints. Physical Exam Vital signs: Vital Signs 08/25/18 15:36 08/25/18 20:00 08/26/18 00:00 Temperature 98.6 F 99.7 F H 101.4 F H Pulse Rate 84 88 88 Respiratory Rate 20 17 20 Blood Pressure 143/69 H 111/54 L 110/55 L Pulse Oximetry 97 97 97 08/26/18 04:00 08/26/18 09:15 08/26/18 12:00 Temperature 98.7 F 98.3 F 98.0 F Pulse Rate 78 90 83 Respiratory Rate 16 18 16 Blood Pressure 122/69 162/77 H 141/72 H Pulse Oximetry 98 99 97 Intake & Output 08/25/18 08/26/18 08/26/18 18:59 06:59 18:59 Intake Total 591 / 591 1120 / 1120 Balance 591 / 591 1120 / 1120 Weight 63.18 kg 63.18 kg Intake: IV 1000 / 1000 NS Inj 1,000 ML @ 84 mls/hr IV. 1000 / 1000 CONT .[id number] [facility] Rx#:[id number] Oral 591 / 591 120 / 120 Other: # Voids 2 Weight On Admission 63.18 kg Narrative: GENERAL: NAD, A&Ox3 HEAD: Normocephalic. NECK: Supple, trachea midline. No lymphadenopathy. EYES: No scleral icterus. No injection or drainage. CARDIOVASCULAR: Regular rate and rhythm without murmurs, gallops, or rubs. RESPIRATORY: Breath sounds equal bilaterally. No accessory muscle use. GASTROINTESTINAL: Abdomen soft, non-tender, nondistended. MUSCULOSKELETAL: No cyanosis, or edema. SKIN: Warm and dry. NEURO: No focal neurological deficits. Results - Labs CBC & Chem 7: 08/26/18 06:13 08/26/18 06:13 Laboratory Results - last 24 hr 08/25/18 08/26/18 08/26/18 07:43 06:13 06:13 WBC RBC Hgb Hct MCV MCH MCHC RDW Plt Count MPV Neut % (Auto) Lymph % (Auto) [place] % (Auto) Eos % (Auto) Baso % (Auto) Neut # (Auto) Lymph # (Auto) [place] # (Auto) Eos # (Auto) Baso # (Auto) WBC Differential Differential Comment Sodium Potassium Chloride Carbon Dioxide Anion Gap BUN Creatinine Estimated GFR Random Glucose Calcium Total Bilirubin AST ALT Alkaline Phosphatase Total Protein Albumin Prealbumin 7 L Tumor Marker AFP 2.6 Carcinoembryonic Ag 4.3 CA 19-9 Antigen 73.4 H Prostate Specific Ag 0.60 08/26/18 08/26/18 06:13 06:13 WBC 8.5 RBC 3.40 L Hgb 9.4 L Hct 27.9 L MCV 82.2 MCH 27.6 MCHC 33.6 RDW 13.1 Plt Count 320 MPV 6.2 L Neut % (Auto) 58.3 Lymph % (Auto) 25.8 [place] % (Auto) 15.2 H Eos % (Auto) 0.5 Baso % (Auto) 0.2 Neut # (Auto) 5.0 Lymph # (Auto) 2.2 [place] # (Auto) 1.3 H Eos # (Auto) 0.0 Baso # (Auto) 0.0 WBC Differential . Differential Comment Auto diff final Sodium 138 Potassium 4.2 Chloride 104 Carbon Dioxide 26.1 Anion Gap 8 BUN 13 Creatinine 0.78 Estimated GFR Greater than 89 Random Glucose 104 Calcium 8.3 L Total Bilirubin 1.2 H AST 77 H ALT 39 Alkaline Phosphatase 183 H Total Protein 6.8 D Albumin 2.5 L Prealbumin Tumor Marker AFP Carcinoembryonic Ag CA 19-9 Antigen Prostate Specific Ag - Imaging Impressions Chest CT 08/26/18 00:00 CONCLUSION: 1. Mild emphysema without infiltrate or mass. 2. Multiple metastatic lesions in the liver. 3. Heterogeneous enlarged thyroid gland containing multiple nodules greater on the left. Liver Biopsy Ultrasound 08/26/18 00:00 CONCLUSION: 1. Uncomplicated ultrasound-guided biopsy of the patient's liver metastatic disease. Assessment and Plan - Plan 72-year-old male admitted secondary to abdominal pain and neck swelling with evidence of goiter and abdominal metastasis disease Abdominal pain Improved with pain treatments Continue pain treatments Continue abdominal workup Abdominal masses Liver metastasis Thyroid mass/goiter Anorexia Elevated AST Suspect for neoplastic origin with evidence of metastasis Status post biopsy Status post CT of chest, no evidence of metastasis in lungs Positive CA 199 Oncology following DVT prophylaxis SCDs
--- NOTE | 2018-08-26 14:34 | P.DIET ---
Nutritional Evaluation Type of nutrition evaluation: initial Nutrition consult regarding: Diet Evaluation Nutrition screening: Poor PO Intake Objective - Diagnosis abd pain, neck swelling, possible metastasis - Objective Body Mass Index: 22.5 % IBW: 107 (IBW = 130lb) Body Weight Used for Calculations: Actual Energy Needs - Lower Range (kCal/kg): 25 Energy Needs - Upper Range (kCal/kg): 30 Lower Limit kCal/kg (kCals): 1,580 Upper Limit kCal/kg (kCals): 1,895 Lower Limit Protein Factor (Grams per Kg): 1.2 Upper Limit Protein Factor (Grams per Kg): 1.5 Lower Protein Needs (Protein): 76 Upper Protein Needs (Protein): 95 Fluid Factor (ml/kg): 25 Estimated Fluid Needs (ml): 1,580 Dietitian Reviewed in Medical Record: Current diet, Curent medications, Intake & Output, Labs, Medical history Diet Order: regular, ensure enlive TID vanilla Objective Comments: Meds: norco, milk of mag, lactulose, morphine Assessment Assessment: Pt currently at nutritional risk r/t reported PO intake. Pt is on a regular diet with Ensure Enlive TID. Will continue to monitor PO and supplement intake. Labs and wt reviewed. Dietitian following. Recommendations: 1 .Continue regular diet with Ensure Enlive TID 2. Will continue to monitor PO and supplement intake 3. Encourage PO intake as necessary 4. Dietitian following. Dietitian to Monitor: Lab values, Intake & Output, Diet tolerance, Weight change , PO Intake, Medical course
--- NOTE | 2018-08-26 17:13 | P.PNONC ---
Subjective Interval history: Patient resting comfortably in bed, no acute distress. Patient reports he is feeling much better. He has felt feverish. He reports his right upper quadrant abdominal pain has improved. Objective Vital Signs/Intake & Output: Vital Signs 08/25/18 20:00 08/26/18 00:00 08/26/18 04:00 Temperature 99.7 F H 101.4 F H 98.7 F Pulse Rate 88 88 78 Respiratory Rate 17 20 16 Blood Pressure 111/54 L 110/55 L 122/69 Pulse Oximetry 97 97 98 08/26/18 09:15 08/26/18 12:00 Temperature 98.3 F 98.0 F Pulse Rate 90 83 Respiratory Rate 18 16 Blood Pressure 162/77 H 141/72 H Pulse Oximetry 99 97 Intake & Output 08/25/18 08/26/18 08/26/18 18:59 06:59 18:59 Intake Total 591 / 591 1120 / 1120 Balance 591 / 591 1120 / 1120 Weight 63.18 kg 63.18 kg Intake: IV 1000 / 1000 NS Inj 1,000 ML @ 84 mls/hr IV. 1000 / 1000 CONT .[id number] [facility] Rx#:[id number] Oral 591 / 591 120 / 120 Other: # Voids 2 Weight On Admission 63.18 kg Result Diagrams: 08/26/18 06:13 08/26/18 06:13 Laboratory Results: Laboratory Results - last 24 hr 08/25/18 08/26/18 08/26/18 07:43 06:13 06:13 WBC RBC Hgb Hct MCV MCH MCHC RDW Plt Count MPV Neut % (Auto) Lymph % (Auto) [place] % (Auto) Eos % (Auto) Baso % (Auto) Neut # (Auto) Lymph # (Auto) [place] # (Auto) Eos # (Auto) Baso # (Auto) WBC Differential Differential Comment Sodium Potassium Chloride Carbon Dioxide Anion Gap BUN Creatinine Estimated GFR Random Glucose Calcium Total Bilirubin AST ALT Alkaline Phosphatase Total Protein Albumin Prealbumin 7 L Tumor Marker AFP 2.6 Carcinoembryonic Ag 4.3 CA 19-9 Antigen 73.4 H Prostate Specific Ag 0.60 08/26/18 08/26/18 06:13 06:13 WBC 8.5 RBC 3.40 L Hgb 9.4 L Hct 27.9 L MCV 82.2 MCH 27.6 MCHC 33.6 RDW 13.1 Plt Count 320 MPV 6.2 L Neut % (Auto) 58.3 Lymph % (Auto) 25.8 [place] % (Auto) 15.2 H Eos % (Auto) 0.5 Baso % (Auto) 0.2 Neut # (Auto) 5.0 Lymph # (Auto) 2.2 [place] # (Auto) 1.3 H Eos # (Auto) 0.0 Baso # (Auto) 0.0 WBC Differential . Differential Comment Auto diff final Sodium 138 Potassium 4.2 Chloride 104 Carbon Dioxide 26.1 Anion Gap 8 BUN 13 Creatinine 0.78 Estimated GFR Greater than 89 Random Glucose 104 Calcium 8.3 L Total Bilirubin 1.2 H AST 77 H ALT 39 Alkaline Phosphatase 183 H Total Protein 6.8 D Albumin 2.5 L Prealbumin Tumor Marker AFP Carcinoembryonic Ag CA 19-9 Antigen Prostate Specific Ag Imaging Studies: Impressions Chest CT 08/26/18 00:00 CONCLUSION: 1. Mild emphysema without infiltrate or mass. 2. Multiple metastatic lesions in the liver. 3. Heterogeneous enlarged thyroid gland containing multiple nodules greater on the left. Liver Biopsy Ultrasound 08/26/18 00:00 CONCLUSION: 1. Uncomplicated ultrasound-guided biopsy of the patient's liver metastatic disease. Medications: Active Medications Generic Name Dose Route Start Last Admin Trade Name Freq PRN Reason Stop Dose Admin Acetaminophen 650 mg 08/25/18 16:46 08/26/18 00:19 Tylenol PO 650 mg Q4H PRN Administration Temp > 100.4 Sodium Chloride 1,000 mls @ 84 mls/hr 08/25/18 16:39 08/26/18 04:44 Ns Inj IV.CONT 84 mls/hr .[id number] [facility] Administration Ondansetron HCl 4 mg 08/25/18 16:46 08/25/18 17:16 Zofran Inj IV.PUSH 4 mg Q6H PRN Administration NAUSEA OR VOMITING Senna/Docusate Sodium 1 tab 08/25/18 21:00 08/26/18 13:25 Alexandra-Colace PO Not Given BID ELIGIO Sodium Chloride 2 ml 08/25/18 21:00 08/26/18 13:25 Ns Flush IV.FLUSH 2 ml BID [facility] Administration Objective Remarks: GENERAL: Well-nourished, well-developed elderly male patient, in no acute distress. SKIN: Warm and dry. HEAD: Normocephalic. EYES: No scleral icterus. No injection or drainage. NECK: Supple, trachea midline. +goiter appearing mass. CARDIOVASCULAR: Regular rate and rhythm without murmurs. RESPIRATORY: Breath sounds equal bilaterally. No accessory muscle use. GASTROINTESTINAL: Abdomen soft, non-tender, nondistended. EXTREMITIES: No cyanosis, or edema. MUSCULOSKELETAL: Adequate muscle tone. NEUROLOGICAL: No obvious focal deficit. Awake, alert, and oriented x3. PSYCHIATRIC: Appropriate mood and affect; insight and judgment normal. Assessment/Plan - Plan Mr. Nash is a pleasant 72-year-old gentleman, who was found to have multiple numerous scattered new low-attenuation liver lesions characteristic of metastasis. He is status post biopsy, results pending. Recommendations: 1. Liver lesions, biopsy path pending. AFP 2.6, CEA 4.3, CA 19-9 pending 2. Fever, T-max 101.4 F. Currently no antibiotics, will continue to monitor closely. 3. Case management consulted to assist this uninsured patient to the appropriate resources for outpatient oncology follow-up. - Attending Statement The exam, history, and the medical decision-making described in the above note were completed with the assistance of the mid-level provider. I reviewed and agree with the findings presented. I attest that I had a [id number] encounter with the patient on the same day, and personally performed and documented my assessment and findings in the medical record.Pt has fever this morning. RUQ is better controlled. Tumor markers pending. CT chest pending when I saw him Await biopsy of liver mass.
[2018-08-27] MEDS: Sod Chloride 0.9% Inj 1,000 ML IV.CONT SCH (06:42)
[2018-08-27 06:47] LABS: Baso % (Auto) 0.2 % (0.0-2.0); Eos % (Auto) 0.4 % (0.0-4.0); Hematocrit 27.6 % (39.0-51.0); Lymph % (Auto) 23.6 % (9.0-44.0); Mean Corpuscular HGB Conc 32.7 % (32.0-36.0); Mean Corpuscular Hemoglobin 27.6 pg (27.0-34.0); Mean Corpuscular Volume 84.3 fL (80.0-100.0); Mean Platelet Volume 6.2 fL (7.0-11.0); Mono # (Auto) 1.2 th/mm3 (0.0-0.9); Mono % (Auto) 13.8 % (0.0-8.0); Neut # (Auto) 5.2 th/mm3 (1.8-7.7); Platelet Count 313 th/mm3 (150-450); Red Blood Count 3.27 mil/mm3 (4.50-5.90); Red Cell Distribution Width 13.4 % (11.6-17.2); White Blood Count 8.5 th/mm3 (4.0-11.0)
[2018-08-27 07:19] LABS: Alanine Aminotransferase 39 U/L (12-78); Albumin 2.5 g/dL (3.4-5.0); Anion Gap 8 meq/L (5-15); Aspartate Aminotransferase 78 U/L (15-37); Blood Urea Nitrogen 12 mg/dL (7-18); Carbon Dioxide 26.6 meq/L (21.0-32.0); Chloride 102 meq/L (98-107); Glomerular Filtration Rate Greater Than 89 mL/min (>89); Glucose,Random 114 mg/dL (74-106); Potassium 4.2 meq/L (3.5-5.1); Sodium 137 meq/L (136-145)
[2018-08-27 07:22] LABS: Alkaline Phosphatase 186 U/L (45-117); Total Protein 6.6 g/dL (6.4-8.2)
--- NOTE | 2018-08-27 08:06 | P.PNONC ---
Subjective Interval history: Still has right upper quadrant pain and right flank pain. He had biopsy of the liver mass yesterday. He denies any chest pain or shortness of breath. He denies any nausea vomiting. Objective Vital Signs/Intake & Output: Vital Signs 08/26/18 09:15 08/26/18 10:00 08/26/18 10:15 Temperature 98.3 F 98.1 F Pulse Rate 90 81 83 Respiratory Rate 18 16 16 Blood Pressure 162/77 H 100/59 L 107/82 Pulse Oximetry 99 98 98 08/26/18 10:45 08/26/18 12:00 08/26/18 19:53 Temperature 98.0 F 99.3 F Pulse Rate 82 83 98 H Respiratory Rate 18 16 18 Blood Pressure 121/62 141/72 H 128/60 Pulse Oximetry 98 97 98 08/26/18 23:39 08/27/18 04:00 08/27/18 07:54 Temperature 100.6 F H 99.4 F 98.7 F Pulse Rate 91 H 89 88 Respiratory Rate 18 16 16 Blood Pressure 114/58 L 128/60 139/74 Pulse Oximetry 98 99 97 Intake & Output 08/26/18 08/27/18 08/27/18 18:59 06:59 18:59 Intake Total 240 / 240 Output Total 800 / 800 Balance -800 / -800 240 / 240 Weight 63.18 kg Intake: Oral 240 / 240 Output: Urine 800 / 800 Other: # Voids 2 Result Diagrams: 08/27/18 06:04 08/27/18 06:04 Laboratory Results: Laboratory Results - last 24 hr 08/26/18 08/27/18 08/27/18 06:13 06:04 06:04 WBC 8.5 RBC 3.27 L Hgb 9.0 L Hct 27.6 L MCV 84.3 MCH 27.6 MCHC 32.7 RDW 13.4 Plt Count 313 MPV 6.2 L Neut % (Auto) 62.0 Lymph % (Auto) 23.6 [place] % (Auto) 13.8 H Eos % (Auto) 0.4 Baso % (Auto) 0.2 Neut # (Auto) 5.2 Lymph # (Auto) 2.0 [place] # (Auto) 1.2 H Eos # (Auto) 0.0 Baso # (Auto) 0.0 WBC Differential . Differential Comment Auto diff final Sodium 137 Potassium 4.2 Chloride 102 Carbon Dioxide 26.6 Anion Gap 8 BUN 12 Creatinine 0.71 Estimated GFR Greater than 89 Random Glucose 114 H Calcium 8.0 L Total Bilirubin 0.8 AST 78 H ALT 39 Alkaline Phosphatase 186 H Total Protein 6.6 Albumin 2.5 L CA 19-9 Antigen 73.4 H Prostate Specific Ag 0.60 Imaging Studies: Impressions Chest CT 08/26/18 00:00 CONCLUSION: 1. Mild emphysema without infiltrate or mass. 2. Multiple metastatic lesions in the liver. 3. Heterogeneous enlarged thyroid gland containing multiple nodules greater on the left. Liver Biopsy Ultrasound 08/26/18 00:00 CONCLUSION: 1. Uncomplicated ultrasound-guided biopsy of the patient's liver metastatic disease. Medications: Active Medications Generic Name Dose Route Start Last Admin Trade Name Freq PRN Reason Stop Dose Admin Acetaminophen 650 mg 08/25/18 16:46 08/26/18 00:19 Tylenol PO 650 mg Q4H PRN Administration Temp > 100.4 Sodium Chloride 1,000 mls @ 84 mls/hr 08/25/18 16:39 08/27/18 06:42 Ns Inj IV.CONT 84 mls/hr .[id number] [facility] Administration Ondansetron HCl 4 mg 08/25/18 16:46 08/25/18 17:16 Zofran Inj IV.PUSH 4 mg Q6H PRN Administration NAUSEA OR VOMITING Senna/Docusate Sodium 1 tab 08/25/18 21:00 08/26/18 21:33 Alexandra-Colace PO Not Given BID [facility] Sodium Chloride 2 ml 08/25/18 21:00 08/26/18 21:33 Ns Flush IV.FLUSH 2 ml BID [facility] Administration Objective Remarks: GENERAL: Well-nourished, well-developed patient. SKIN: Warm and dry. HEAD: Normocephalic. EYES: No scleral icterus. No injection or drainage. NECK: Supple, trachea midline. No JVD or lymphadenopathy. LYMPHATIC: No adenopathy. CARDIOVASCULAR: Regular rate and rhythm without murmurs. RESPIRATORY: Breath sounds equal bilaterally. No accessory muscle use. GASTROINTESTINAL: Abdomen soft, slightly tender right upper quadrant area. Biopsy site no hematoma noted. Positive bowel sound, nondistended. EXTREMITIES: No cyanosis, or edema. MUSCULOSKELETAL: Adequate muscle tone. NEUROLOGICAL: No obvious focal deficit. Awake, alert, and oriented x3. PSYCHIATRIC: Appropriate mood and affect; insight and judgment normal. Assessment/Plan (1) Liver metastasis Code(s): C78.7 - Secondary malignant neoplasm of liver and intrahepatic bile duct Status: Acute (2) Thyroid mass Code(s): E07.9 - Disorder of thyroid, unspecified Status: Acute - Plan Mr. Nash is a pleasant 72-year-old gentleman, who was found to have multiple numerous scattered new low-attenuation liver lesions characteristic of metastasis. He is status post biopsy August 26, results pending. CT of the chest did not show any primary tumor or metastatic disease. Recommendations: 1. Liver lesions, biopsy path pending. AFP 2.6, CEA 4.3, CA 19-9 elevated 73.4. Further recommendation will depend on final tissue diagnosis. 2. Febrile illness. Management per primary team. 3. Case management consulted to assist this uninsured patient to the appropriate resources for outpatient oncology follow-up.
[2018-08-27] MEDS: Sodium Chloride 0.9% 2 ML Flush BID IV.FLUSH SCH ×2 (08:37→22:48)
[2018-08-27] MEDS: Senna/Docusate Sodium 8.6/50 MG Tablet PO SCH ×2 (08:37→20:12)
--- NOTE | 2018-08-27 12:40 | P.PNIM ---
Subjective Interval history: Chief Complaint: abd pain History of Present Illness: Patient is a pleasant frail 72 yo AA male, who presented to the emergency department complaining of abdominal pain. Pain is described as being diffuse, started approximately 3 weeks ago, associated with decreased appetite, pain is intermittent, approximately 30 minutes to 1 hour duration, no alleviating or aggravating factors. States he has had similar pain like this in the past. Is also reporting intermittent swollen neck this been present for "a while." Says he has lost weight but doemst know kow much , says clothes are loose. He denies fever, chills, nausea, vomiting, diarrhea, constipation, difficulty swallowing. He is breathing well no wheezing and he is satting well on room air. 11-1 No distress today. Imaging of chest shows no metastasis in the lungs/ mediastinum. Liver metastasis is visualized on chest imaging. No pain complaints. 11-2 HAD BIOPSY OF LIVER RESULTS PENDING HAS ELEVATED CA 19-9 Physical Exam Vital signs: Vital Signs 08/26/18 19:53 08/26/18 23:39 08/27/18 04:00 Temperature 99.3 F 100.6 F H 99.4 F Pulse Rate 98 H 91 H 89 Respiratory Rate 18 18 16 Blood Pressure 128/60 114/58 L 128/60 Pulse Oximetry 98 98 99 08/27/18 07:54 08/27/18 11:31 Temperature 98.7 F 98.6 F Pulse Rate 88 87 Respiratory Rate 16 20 Blood Pressure 139/74 125/70 Pulse Oximetry 97 98 Intake & Output 08/26/18 08/27/18 08/27/18 18:59 06:59 18:59 Intake Total 240 / 240 Output Total 800 / 800 Balance -800 / -800 240 / 240 Weight 63.18 kg Intake: Oral 240 / 240 Output: Urine 800 / 800 Other: # Voids 2 Narrative: GENERAL: NAD, A&Ox3 HEAD: Normocephalic. NECK: Supple, trachea midline. No lymphadenopathy. EYES: No scleral icterus. No injection or drainage. CARDIOVASCULAR: Regular rate and rhythm without murmurs, gallops, or rubs. RESPIRATORY: Breath sounds equal bilaterally. No accessory muscle use. GASTROINTESTINAL: Abdomen soft, non-tender, nondistended. MUSCULOSKELETAL: No cyanosis, or edema. SKIN: Warm and dry. NEURO: No focal neurological deficits. Results - Labs CBC & Chem 7: 08/27/18 06:04 08/27/18 06:04 Laboratory Results - last 24 hr 08/27/18 08/27/18 06:04 06:04 WBC 8.5 RBC 3.27 L Hgb 9.0 L Hct 27.6 L MCV 84.3 MCH 27.6 MCHC 32.7 RDW 13.4 Plt Count 313 MPV 6.2 L Neut % (Auto) 62.0 Lymph % (Auto) 23.6 [place] % (Auto) 13.8 H Eos % (Auto) 0.4 Baso % (Auto) 0.2 Neut # (Auto) 5.2 Lymph # (Auto) 2.0 [place] # (Auto) 1.2 H Eos # (Auto) 0.0 Baso # (Auto) 0.0 WBC Differential . Differential Comment Auto diff final Sodium 137 Potassium 4.2 Chloride 102 Carbon Dioxide 26.6 Anion Gap 8 BUN 12 Creatinine 0.71 Estimated GFR Greater than 89 Random Glucose 114 H Calcium 8.0 L Total Bilirubin 0.8 AST 78 H ALT 39 Alkaline Phosphatase 186 H Total Protein 6.6 Albumin 2.5 L - Imaging Impressions Liver Biopsy Ultrasound 08/26/18 00:00 CONCLUSION: 1. Uncomplicated ultrasound-guided biopsy of the patient's liver metastatic disease. - Procedures LIVER BIOPSY BY IR 08-26 Assessment and Plan - Plan 72-year-old male admitted secondary to abdominal pain and neck swelling with evidence of goiter and abdominal metastasis disease Abdominal pain Improved with pain treatments Continue pain treatments Continue abdominal workup Abdominal masses Liver metastasis Thyroid mass/goiter Anorexia Elevated AST Suspect for neoplastic origin with evidence of metastasis Status post biopsy Status post CT of chest, no evidence of metastasis in lungs Positive CA 199 Oncology following SP BIOPSY OF LIVER ON 08-26 AWAIT PATHOLOGY DVT prophylaxis SCDS FEVERS IS AND CULTURE UA CHEST XRAY BLOOD CULTURES Code Status: FULL CODE Discussed Condition With: RN AND PT AND CM Discharge Planning: PENDING DIAGNOSIS AND ONCOLOGY CLEARANCE
--- NOTE | 2018-08-27 14:23 | XR ---
EXAM DATE: 08/27/2018 2:17 PM EDT AGE/SEX: 72 years / Male INDICATIONS: . Fever. CLINICAL DATA: This is the patient's initial encounter. Patient reports that signs and symptoms have been present for 3 days and indicates a pain score of 0/10. MEDICAL/SURGICAL HISTORY: None. cholecystitis Cholecystectomy. COMPARISON: [facility] [place], CHEST SINGLE AP, 03/26/2012. . FINDINGS: PA and lateral views of the chest demonstrate the lungs to be symmetrically aerated without evidence of mass, infiltrate or effusion. The cardiomediastinal contours are unremarkable. Osseous structures are intact. CONCLUSION: Negative for an acute process Electronically signed by: Pb Dowling MD 08/27/2018 2:21 PM EDT
[2018-08-27 23:03] LABS: Bilirubin,Urine Negative (Negative); Clarity,Urine Clear (Clear); Color,Urine Yellow (Yellw/Straw); Glucose,Urine (UA) Negative (Negative); Leukocyte Esterase,Urine Negative (Negative); Mucus,Urine Few /lpf (Occasional); Nitrite,Urine Negative (Negative); Specific Gravity,Urine 1.017 (1.002-1.035); Squamous Epithelial Cell,Urine <1 /hpf (0-5); Urobilinogen,Urine 4 or Greater mg/dL (Less than 2)
[2018-08-28] MEDS: Sod Chloride 0.9% Inj 1,000 ML IV.CONT SCH ×2 (04:49→12:31)
[2018-08-28 07:29] LABS: Baso % (Auto) 0.3 % (0.0-2.0); Eos # (Auto) 0.1 th/mm3 (0.0-0.4); Eos % (Auto) 0.6 % (0.0-4.0); Hematocrit 27.6 % (39.0-51.0); Hemoglobin 9.1 gm/dL (13.0-17.0); Lymph # (Auto) 1.6 th/mm3 (1.0-4.8); Lymph % (Auto) 20.2 % (9.0-44.0); Mean Corpuscular HGB Conc 32.8 % (32.0-36.0); Mean Corpuscular Hemoglobin 27.7 pg (27.0-34.0); Mean Corpuscular Volume 84.3 fL (80.0-100.0); Mean Platelet Volume 6.2 fL (7.0-11.0); Mono # (Auto) 1.3 th/mm3 (0.0-0.9); Mono % (Auto) 15.6 % (0.0-8.0); Neut # (Auto) 5.1 th/mm3 (1.8-7.7); Neut % (Auto) 63.3 % (16.0-70.0); Platelet Count 307 th/mm3 (150-450); Red Blood Count 3.27 mil/mm3 (4.50-5.90); Red Cell Distribution Width 13.3 % (11.6-17.2)
[2018-08-28 07:57] LABS: Albumin 2.3 g/dL (3.4-5.0); Anion Gap 8 meq/L (5-15); Aspartate Aminotransferase 86 U/L (15-37); Blood Urea Nitrogen 13 mg/dL (7-18); Calcium 7.8 mg/dL (8.5-10.1); Carbon Dioxide 26.8 meq/L (21.0-32.0); Chloride 103 meq/L (98-107); Glomerular Filtration Rate Greater Than 89 mL/min (>89); Glucose,Random 101 mg/dL (74-106); Magnesium 2.1 mg/dL (1.5-2.5); Potassium 4.2 meq/L (3.5-5.1); Sodium 138 meq/L (136-145)
[2018-08-28 08:06] LABS: Alanine Aminotransferase 42 U/L (12-78); Alkaline Phosphatase 188 U/L (45-117); Free T4 (Free Thyroxine) 2.14 ng/dL (0.76-1.46); Phosphorus 3.3 mg/dL (2.5-4.9); Total Protein 6.6 g/dL (6.4-8.2)
[2018-08-28] MEDS: Senna/Docusate Sodium 8.6/50 MG Tablet PO SCH ×2 (09:43→21:03)
[2018-08-28] MEDS: Sodium Chloride 0.9% 2 ML Flush BID IV.FLUSH SCH ×2 (09:43→21:03)
--- NOTE | 2018-08-28 12:28 | P.PNIM ---
Subjective Interval history: Patient complains of some mild abdominal pain mostly in the right upper quadrant. He does not have any other complaints this morning. Physical Exam Vital signs: Vital Signs 08/27/18 15:30 08/27/18 20:00 08/27/18 22:03 Temperature 98.4 F 100.6 F H 98.5 F Pulse Rate 89 95 H 98 H Respiratory Rate 18 18 Blood Pressure 144/76 H 145/77 H Pulse Oximetry 98 99 08/27/18 23:56 08/28/18 04:00 08/28/18 04:44 Temperature 97.9 F 98.1 F Pulse Rate 97 H 96 H 92 H Respiratory Rate 16 14 Blood Pressure 113/55 L 137/63 Pulse Oximetry 99 96 08/28/18 08:00 08/28/18 11:56 08/28/18 11:59 Temperature 99.6 F 98.8 F Pulse Rate 97 H 88 89 Respiratory Rate 24 20 Blood Pressure 127/62 126/71 Pulse Oximetry 99 Intake & Output 08/27/18 08/28/18 08/28/18 18:59 06:59 18:59 Intake Total 360 / 360 1240 / 1240 Output Total 400 / 400 525 / 525 Balance -40 / -40 715 / 715 Weight 63.7 kg Intake: IV 1000 / 1000 NS Inj 1,000 ML @ 84 mls/hr IV. 1000 / 1000 CONT .[id number] [facility] Rx#:[id number] Oral 360 / 360 240 / 240 Output: Urine 400 / 400 525 / 525 Other: Date of Last Bowel Movement 08/26/18 08/27/18 08/28/18 Narrative: General patient has some mild abdominal pain. HEENT extraocular movements are intact, clear oropharyngeal mucosa, no JVD Cardiovascular S1-S2 audible, RRR, no murmurs rubs or gallops Respiratory clear to auscultation bilaterally Abdomen soft, nontender, nondistended, normal bowel sounds Extremities no edema 2+ distal pulses in bilateral upper and lower extremities Neuro cranial nerves II through XII intact Results - Labs CBC & Chem 7: 08/28/18 06:07 08/28/18 06:07 Laboratory Results - last 24 hr 08/27/18 08/28/18 08/28/18 22:20 06:07 06:07 WBC 8.0 RBC 3.27 L Hgb 9.1 L Hct 27.6 L MCV 84.3 MCH 27.7 MCHC 32.8 RDW 13.3 Plt Count 307 MPV 6.2 L Neut % (Auto) 63.3 Lymph % (Auto) 20.2 Grand % (Auto) 15.6 H Eos % (Auto) 0.6 Baso % (Auto) 0.3 Neut # (Auto) 5.1 Lymph # (Auto) 1.6 Grand # (Auto) 1.3 H Eos # (Auto) 0.1 Baso # (Auto) 0.0 WBC Differential . Differential Comment Auto diff final Sodium 138 Potassium 4.2 Chloride 103 Carbon Dioxide 26.8 Anion Gap 8 BUN 13 Creatinine 0.65 Estimated GFR Greater than 89 Random Glucose 101 Calcium 7.8 L Phosphorus 3.3 Magnesium 2.1 Total Bilirubin 1.0 AST 86 H ALT 42 Alkaline Phosphatase 188 H Total Protein 6.6 Albumin 2.3 L TSH Less than 0.005 L Free T4 2.14 H Urine Color Yellow Urine Clarity Clear Urine pH 6.0 Ur Specific Berger 1.017 Urine Protein Negative Urine Glucose (UA) Negative Urine Ketones 20 Urine Occult Blood Negative Urine Nitrate Negative Urine Bilirubin Negative Urine Urobilinogen 4 or greater Ur Leukocyte Esterase Negative Urine RBC 4 H Urine WBC 2 Ur Squamous Epith Cells <1 Urine Mucus Few H Micro UA Comment Culture not ind Ur Microscopic Review Not Reportable Urine Culture Comments Culture not ind Microbiology 08/27/18 13:20 Blood - Peripheral Aerobic Blood Culture - Preliminary No growth in 1 day 08/27/18 13:20 Blood - Peripheral Anaerobic Blood Culture - Preliminary No growth in 1 day 08/27/18 13:27 Blood - Peripheral Aerobic Blood Culture - Preliminary No growth in 1 day 08/27/18 13:27 Blood - Peripheral Anaerobic Blood Culture - Preliminary No growth in 1 day - Imaging Impressions Chest X-Ray 08/27/18 00:00 CONCLUSION: Negative for an acute process - Procedures LIVER BIOPSY BY IR 11-1 Assessment and Plan - Plan This patient is a 72-year-old -[place] male who came into the emergency room with complaints of abdominal pain. The patient was found to have neck swelling and evidence of goiter abdominal imaging shows numerous scattered liver lesions characteristic of metastatic disease. 1. Lesions of the liver likely metastatic disease 2. Abdominal pain We are suspecting neoplastic origin given the patient's abdominal imaging. CA19-9 elevated The patient is status post biopsy, biopsy results show early differentiated carcinoma, most consistent with metastatic pancreatic carcinoma. No significant findings on CT scan of the chest. We will continue to follow-up with oncology. Currently on pain medications for abdominal pain, continue current management 3. Fevers Patient had one fever over the past 24 hours. Urinalysis negative, chest imaging negative, blood cultures negative. We will continue to monitor the patient and if he spikes another fever he will be started on IV antibiotics. Plan discussed with the patient's nurse. Lovenox started for DVT prophylaxis.
[2018-08-28 13:28] LABS: Hemoglobin A1c 5.6 % (4.3-6.0)
[2018-08-29] MEDS: Sod Chloride 0.9% Inj 1,000 ML IV.CONT SCH ×4 (00:04→17:58)
[2018-08-29] MEDS: Enoxaparin Inj 40 MG/0.4 ML Syringe SQ SCH (09:06)
[2018-08-29] MEDS: Senna/Docusate Sodium 8.6/50 MG Tablet PO SCH ×2 (10:09→22:13)
[2018-08-29] MEDS: Sodium Chloride 0.9% 2 ML Flush BID IV.FLUSH SCH ×2 (10:10→22:13)
--- NOTE | 2018-08-29 15:45 | P.PNIM ---
Subjective Interval history: Patient says he feels better today. No significant complaints of abdominal pain. Physical Exam Vital signs: Vital Signs 08/28/18 20:00 08/29/18 00:00 08/29/18 04:00 Temperature 99.9 F H 98.7 F 99.2 F Pulse Rate 97 H 87 97 H Respiratory Rate 16 16 16 Blood Pressure 101/80 147/82 H 133/77 Pulse Oximetry 99 98 97 08/29/18 08:00 08/29/18 11:31 08/29/18 12:03 Temperature 99.9 F H 99.4 F Pulse Rate 90 98 H 96 H Respiratory Rate 22 20 Blood Pressure 137/73 127/71 Pulse Oximetry 99 98 Intake & Output 08/28/18 08/29/18 08/29/18 19:59 06:59 18:59 Intake Total 1000 / 1000 Output Total Balance 1000 / 1000 Weight Intake: IV 1000 / 1000 NS Inj 1,000 ML @ 84 mls/hr IV. 1000 / 1000 CONT .[id number] [facility] Rx#:[id number] Oral Output: Urine Other: Date of Last Bowel Movement 08/28/18 Narrative: General patient has some mild abdominal pain. HEENT extraocular movements are intact, clear oropharyngeal mucosa, no JVD Cardiovascular S1-S2 audible, RRR, no murmurs rubs or gallops Respiratory clear to auscultation bilaterally Abdomen soft, nontender, nondistended, normal bowel sounds Extremities no edema 2+ distal pulses in bilateral upper and lower extremities Neuro cranial nerves II through XII intact Results - Labs CBC & Chem 7: 08/28/18 06:07 08/28/18 06:07 Microbiology 08/27/18 13:20 Blood - Peripheral Aerobic Blood Culture - Preliminary No growth in 2 days 08/27/18 13:20 Blood - Peripheral Anaerobic Blood Culture - Preliminary No growth in 2 days 08/27/18 13:27 Blood - Peripheral Aerobic Blood Culture - Preliminary No growth in 2 days 08/27/18 13:27 Blood - Peripheral Anaerobic Blood Culture - Preliminary No growth in 2 days - Procedures LIVER BIOPSY BY IR 11-1 Assessment and Plan - Plan This patient is a 72-year-old -[place] male who came into the emergency room with complaints of abdominal pain. The patient was found to have neck swelling and evidence of goiter abdominal imaging shows numerous scattered liver lesions characteristic of metastatic disease. 1. Lesions of the liver likely metastatic disease 2. Abdominal pain Patient's pathology returned and shows metastatic pancreatic carcinoma. CA19-9 elevated Patient currently does not have insurance and will need scheduled follow-up with outpatient oncology for further management recommendations. We will continue with pain medications for today. Otherwise the patient is tolerating a p.o. diet and does not have any other significant complaints. Patient will be discharged home tomorrow most likely. 3. Fevers Patient is now afebrile for the last 24 hours. Urinalysis negative, chest imaging negative, blood cultures negative. We will continue to monitor the patient and if he spikes another fever he will be started on IV antibiotics. Plan discussed with the patient's nurse. Lovenox started for DVT prophylaxis.
[2018-08-29] MEDS: Acetaminophen 325 MG Tablet PO PRN (20:42)
--- NOTE | 2018-08-29 21:34 | XR ---
EXAM DATE: 08/29/2018 9:14 PM EST AGE/SEX: 72 years / Male INDICATIONS: Cough CLINICAL DATA: This is the patient's subsequent encounter. Patient reports that signs and symptoms h ave been present for 4 - 6 days and indicates a pain score of 0/10. MEDICAL/SURGICAL HISTORY: . cholecystitis . Cholecystectomy. COMPARISON: [facility] [place], CT CHEST W CONTRAST, 08/26/2018. . FINDINGS: No infiltrate, effusion or pneumothorax. Mild emphysema again noted. Heart size stable, upper limits of normal. Thoracic aorta is mildly tortuous. Thyroid goiter again seen. CONCLUSION: No pneumonia or other acute cardiopulmonary disease demonstrated. Electronically signed by: Francis Silva MD 08/29/2018 9:33 PM EST
[2018-08-30 02:40] LABS: Bilirubin,Urine Negative (Negative); Clarity,Urine Clear (Clear); Color,Urine Yellow (Yellw/Straw); Glucose,Urine (UA) Negative (Negative); Leukocyte Esterase,Urine Negative (Negative); Mucus,Urine Few /lpf (Occasional); Nitrite,Urine Negative (Negative); Urobilinogen,Urine 4 or Greater mg/dL (Less than 2)
[2018-08-30] MEDS: Sod Chloride 0.9% Inj 1,000 ML IV.CONT SCH ×2 (04:30→20:05)
[2018-08-30] MEDS: Piperacil/Tazo 3.375 GM Premix 50 ML IV.SIG SCH ×4 (05:25→23:16)
[2018-08-30] MEDS: Sodium Chloride 0.9% 2 ML Flush BID IV.FLUSH SCH ×2 (09:06→20:06)
[2018-08-30 09:33] LABS: Baso % (Auto) 0.1 % (0.0-2.0); Eos % (Auto) 0.1 % (0.0-4.0); Hematocrit 25.6 % (39.0-51.0); Hemoglobin 8.5 gm/dL (13.0-17.0); Lymph # (Auto) 1.6 th/mm3 (1.0-4.8); Lymph % (Auto) 16.6 % (9.0-44.0); Mean Corpuscular HGB Conc 33.1 % (32.0-36.0); Mean Corpuscular Hemoglobin 27.5 pg (27.0-34.0); Mean Corpuscular Volume 83.2 fL (80.0-100.0); Mean Platelet Volume 6.2 fL (7.0-11.0); Mono # (Auto) 1.1 th/mm3 (0.0-0.9); Mono % (Auto) 11.8 % (0.0-8.0); Neut % (Auto) 71.4 % (16.0-70.0); Platelet Count 330 th/mm3 (150-450); Red Blood Count 3.08 mil/mm3 (4.50-5.90); Red Cell Distribution Width 13.5 % (11.6-17.2); White Blood Count 9.8 th/mm3 (4.0-11.0)
[2018-08-30 09:54] LABS: Anion Gap 8 meq/L (5-15); Blood Urea Nitrogen 14 mg/dL (7-18); Calcium 8.1 mg/dL (8.5-10.1); Carbon Dioxide 25.7 meq/L (21.0-32.0); Chloride 103 meq/L (98-107); Glomerular Filtration Rate Greater Than 89 mL/min (>89); Glucose,Random 106 mg/dL (74-106); Magnesium 2.2 mg/dL (1.5-2.5); Potassium 4.2 meq/L (3.5-5.1); Sodium 137 meq/L (136-145)
[2018-08-30] MEDS: Enoxaparin Inj 40 MG/0.4 ML Syringe SQ SCH (10:46)
[2018-08-30] MEDS: Senna/Docusate Sodium 8.6/50 MG Tablet PO SCH ×2 (10:47→20:05)
--- NOTE | 2018-08-30 12:46 | P.CONPAL ---
Consult Service: Palliative Care Requesting Physician: Denae Zaragoza Reason for Consult: a. To assist with evaluation and management of symptoms including: Pain b. To assist medical decision maker(s) with: better understanding of current medical conditions; weighing benefits/burdens of medical treatment options; making medical treatment decisions. Primary Care Provider: No Primary Care Physician History of Present Illness History of Present Illness: Mr. Nash is a 72-year-old male with a medical history of gallstone, neck mass (possible goiter) who presented to the emergency room on 08/25/18 with complaints of persistent right upper quadrant abdominal diffuse pain for approximately 3 weeks. He also reported of intermittent swollen neck. Patient reported pain as intermittent and worse when he is hungry. ER course: * Vital signs: Temperature 98.9F, pulse 86, respirations 16, BP 161/70, O2 saturation 98%. * EKG reveals sinus rhythm, rate 82, left axis deviation, no ischemic changes. * Laboratory workup revealed WBC 9.1, hemoglobin 10.1, hematocrit 31.4, platelet count 332, PT 12.7, INR 1.3, APTT 26.6, sodium 137, potassium 3.9, BUN/ creatinine 14/0.89, random glucose 109, calcium 8.5, total bilirubin 1.1, AST 86 , ALT 43, alkaline phosphatase 190, troponin less than 0.02, total protein 7.4, albumin 2.9, lipase 70 * Abdomen/pelvis CT revealed numerous scattered new low-attenuation liver lesions characteristic of metastasis, evidence of prior bowel resection, status post cholecystectomy and small amount of air in the central biliary system. * CT soft tissue neck revealed probable large goiter with both cystic and solid elements largest on the left neck. * Patient admitted for further evaluation and treatment under [facility]. Oncology Dr. Cason consulted on 08/25/18 for evaluation and management of a patient with a liver mass, recommended CT chest, checking tumor markers and biopsy of liver mass. Chest CT on 08/26/18 revealed mild emphysema with no infiltrate or mass, multiple metastatic lesions in the liver and heterogeneous enlarged thyroid gland containing multiple nodules greater on the left. Patient underwent ultrasound-guided biopsy of the liver on 08/26/18. Pathology revealed metastatic poorly differentiated carcinoma, most consistent with metastatic pancreatic carcinoma. Laboratory workup on 08/26/18 revealed tumor marker AFP 2.6, carcinoembryonic AG 4.3, CA 199 antigen elevated 73.4. Patient has been having low-grade fevers with a maximum of 99.9 F. Blood cultures collected on 08/27/18 and 08/29/18 showing no growth. Urinalysis on 08/27 negative for leukocyte esterase and nitrates. Case management consulted to assist with assisting patient who is not insured with outpatient oncology care after discharge. Clinical course complicated with pain. Palliative care consulted to assist with symptom management and establishment of goals of medical treatment. Patient seen and examined in his room. Patient is alert, oriented to self, place and situation. Introduced palliative care and its role in symptom management and establishment of goals of medical treatment. Obtained psychosocial, past medical history and events leading to this hospitalization. Allowed patient to express how he feels regarding his new diagnosis of liver metastasis. Patient is appropriately tearful. Patient is never completed advanced directives. Completed and signed designation of healthcare surrogate ( HCS) form today. Designated his granddaughter Xiomy Avendano as his HCS. Patient `s granddaughter works in the medical field. Included patient's granddaughter and conference via telephone. Given recent diagnosis, patient and family have agreed not to pursue chemotherapy. Patient`s granddaughter states that she is aware of chemotherapy complications and as family they would like patient to travel back to [place] as soon as possible before his symptoms get worse. Patient is originally from [place] and most of his family is in [place]. Patient with the support of his granddaughter and other family members have decided that they would like patient to travel back to [place] so can be around his family. They are afraid that if he starts chemotherapy he will be too weak to be able to travel back to [place]. Addressed CODE STATUS, discussed CPR limitations, complications and benefits. Patient with the support of his family elected full code. Patient states that he would like to be resuscitated and intubated to allow some of his family members to come and see him and they will make a decision afterwards. Patient would like to be discharged as soon as possible so that he can make arrangements to go back home before he is critically ill. Patient tearfully stated that he has not seen his in six years who is also losing her vision and he would prefer to be surrounded by his and family for whatever time he has left before he dies. Family is requesting a formal letter from the hospital which states patient's terminal diagnosis, to assist him with obtaining travel documents to [place] since his passport . Case discussed with bedside RN, Denae DIAZ and case ,management. Function/Cognitive Trajectory: Patient lives alone and is independent of all his ADLs and able to verbalize his needs. . Review of Systems Constitutional: Reports weight loss, Denies chills, Denies fever(s) Eyes: Denies bulging eyes, Denies loss of vision Ears, Nose, Mouth, and Throat: Denies abnormal hearing, Denies nasal congestion , Denies nasal discharge Cardiovascular: Denies chest pain, Denies generalized swelling, Denies leg swelling Respiratory: Reports cough (Intermittent), Reports other (Occasionally expectorating whitish sputum), Denies shortness of breath Gastrointestinal: Reports abdominal pain, Denies black, tarry stools, Denies bright, red blood in stools, Denies change in bowel habits, Denies constipation , Denies difficulty swallowing, Denies loose stools, Denies nausea, Denies pain with swallowing, Denies vomiting Genitourinary: Denies blood in urine, Denies urinary incontinence Musculoskeletal: Denies abnormal walking, Denies muscle weakness Skin/Breast: Denies lesions, Denies unusual bruising Neurologic: Denies abnormal speech, Denies confusion, Denies headache(s) Psychiatric: Reports change in appetite, Denies anxiety, Denies confusion Endocrine: Denies increased urination Hematologic/Lymphatic: Denies easy bleeding, Denies easy bruising PMFSH - History History Provided By: Patient, Medical Record - Medical History Medical History: Medical History (Last Updated 08/30/18 @ 12:33 by Delfina Addison) Cholecystitis - Surgical History Surgical History: Surgical History (Last Updated 08/30/18 @ 12:33 by Delfina Addison) Hx of cholecystectomy - Family History Family History: Family History (Last Updated 08/30/18 @ 16:23 by Delfina Addison) Other Family history normal Has 5 living children - Social History I have reviewed the patient's Social History: Yes - Tobacco History Second Hand Smoke Exposure: No Tobacco Use In Past 30 Days: Yes Smoking Status: Current every day smoker Tobacco Type: Cigarettes (1 pack per month) - Alcohol History How Often Do You Have a Drink Containing Alcohol: Never (quit 2 year ago) - Substance Use History Substance History: Active Abuse - Substance Use Type Marijuana Status: Active Route Used: Inhalation Frequency: daily Last Used: 08/22/2018 Reason for Use: Calm Down Comment: "MAKES ME THINK A LOT" - Travel History Recent Travel in the [place] Within the Last 8 Weeks: No Recent Travel Out of the Country Within the Last 8 Weeks: No - Immunization History Tetanus Immunization: Unsure Medications and Allergies Active Medications: Active Medications Acetaminophen (Tylenol) 650 mg PO Q4H PRN PRN Reason: Temp > 100.4 Last Admin: 08/29/18 20:42 Dose: 650 mg Hydrocodone Bitart/Acetaminophen ([place] 5/325) 1 tab PO Q4H PRN PRN Reason: pain 2-10 Last Admin: 08/28/18 21:02 Dose: 1 tab Al Hydroxide/Mg Hydroxide (Milk Of Magnesia Liq) 30 ml PO Q12H PRN PRN Reason: Mild Constipation Last Admin: 08/30/18 10:46 Dose: 30 ml Bisacodyl (Dulcolax Supp) 10 mg RECTAL DAILY PRN PRN Reason: SEVERE CONSITIPATION Enoxaparin Sodium (Lovenox Inj) 40 mg SQ DAILY [facility] Last Admin: 08/30/18 10:46 Dose: 40 mg Sodium Chloride (Ns Inj) 1,000 mls @ 84 mls/hr IV.CONT .[id number] [facility] Last Admin: 08/30/18 04:30 Dose: 84 mls/hr Piperacillin/Tazobactam/Dextrose (Zosyn 3.375 Gm Premix) 50 mls @ 100 mls/hr IV.SIG Q6H [facility] Last Infusion: 08/30/18 11:20 Dose: Infused Lactulose (Lactulose Liq) 30 ml PO DAILY PRN PRN Reason: SEVERE CONSITIPATION Morphine Sulfate (Morphine Inj) 2 mg IV.PUSH Q4H PRN PRN Reason: breakthrough pain, unable PO Ondansetron HCl (Zofran Inj) 4 mg IV.PUSH Q6H PRN PRN Reason: NAUSEA OR VOMITING Last Admin: 08/29/18 17:17 Dose: 4 mg Senna/Docusate Sodium (Alexandra-Colace) 1 tab PO BID [facility] Last Admin: 08/30/18 10:47 Dose: Not Given Sennosides (Senokot) 17.2 mg PO Q12H PRN PRN Reason: Moderate Constipation Sodium Chloride (Ns Flush) 2 ml IV.FLUSH PRN PRN PRN Reason: FLUSH AFTER USING IV ACCESS Sodium Chloride (Ns Flush) 2 ml IV.FLUSH BID [facility] Last Admin: 08/30/18 09:06 Dose: Not Given Allergies Allergy/AdvReac Type Severity Reaction Status Date / Time No Known Allergies Allergy Verified 08/25/18 07:17 Home Medications Medication Instructions Recorded Confirmed Type No Known Home Medications 08/25/18 08/25/18 History Advance Directives Advance Directives Date on File: 08/30/18 (HCS completed) Living Will: No Healthcare Surrogate: Yes Health Care Surrogate Name and Number: Romana Stauffer [phone] Power of Take Off Worker: No Today's verbally stated goals: Patient with the support of his family would like to be discharged as soon as possible. Patient and family have decided not to pursue chemotherapy. They would like patient to travel back to [place] with the rest of his family is. . Family/friends goals: Patient with the support of his family would like to be discharged as soon as possible. Patient and family have decided not to pursue chemotherapy. They would like patient to travel back to [place] with the rest of his family is. . Ethical and Legal Issues: Patient does not want to proceed with chemotherapy or any treatment offered. He would like to call back to [place] where most of his family is. Patient`s passport . He would like assistance with a formal letter from the hospital stating his terminal diagnosis, so that he can apply for emergency travelling documents. . Physical Exam Vital Signs: Vital Signs - 24 hr 08/29/18 15:59 08/29/18 16:00 08/29/18 17:36 Temperature 100.4 F H 100.1 F H Pulse Rate 98 H 100 H Respiratory Rate 20 Blood Pressure 107/79 Pulse Oximetry 97 08/29/18 19:55 08/29/18 20:04 08/30/18 00:00 Temperature 101.6 F H 99.1 F Pulse Rate 100 H 109 H 87 Respiratory Rate 18 16 Blood Pressure 118/62 108/57 L Pulse Oximetry 98 95 08/30/18 00:06 08/30/18 04:04 08/30/18 04:24 Temperature 100.7 F H Pulse Rate 88 92 H 101 H Respiratory Rate 18 Blood Pressure 129/62 Pulse Oximetry 98 08/30/18 09:05 Temperature 98.5 F Pulse Rate 103 H Respiratory Rate 16 Blood Pressure 152/81 H Pulse Oximetry 98 I&O: Intake & Output 08/28/18 08/29/18 08/30/18 08/31/18 07:59 06:59 06:59 06:59 Intake Total 3271 / 3271 290 / 290 Output Total 1815 / 1815 Balance 1456 / 1456 290 / 290 Weight 62.6 kg Physical Exam: CONSTITUTIONAL/GENERAL: This is an adequately nourished patient, in no apparent distress. TUBES/LINES/DRAINS: PIV SKIN: No jaundice, rashes, or lesions. Ecchymoses on upper extremities. No wounds seen anteriorly. Skin temperature appropriate. Not diaphoretic. HEAD: Atraumatic. Normocephalic. EYES: Pupils equal and round and reactive. Extraocular motions intact. No scleral icterus. No injection or drainage. Fundi not examined. ENT: Hearing grossly normal. Nose without bleeding or purulent drainage. Moist oral mucosa NECK: Trachea midline. nontender. Swelling noted to neck. CARDIOVASCULAR: Regular rate and rhythm without murmurs, gallops, or rubs. No JVD. Peripheral pulses symmetric. RESPIRATORY/CHEST: Symmetric, unlabored respirations. Clear to auscultation. Breath sounds equal bilaterally. No wheezes, rales, or rhonchi. GASTROINTESTINAL: Abdomen soft, non-tender, nondistended. No guarding. Bowel sounds present. GENITOURINARY: Without palpable bladder distension. MUSCULOSKELETAL: Extremities without clubbing, cyanosis, or edema. No joint tenderness or effusion noted. No calf tenderness. No mottling or clubbing. LYMPHATICS: Did not assess NEUROLOGICAL: Awake and alert. Motor and sensory grossly within normal limits. Follows commands. Cognitively sharp. Moves all extremities. PSYCHIATRIC: No obvious anxiety/depression. no apparent hallucinations or other psychotic thought process. Diagnostic Tests Laboratory: Laboratory Results - last 72 hr 08/27/18 08/28/18 08/28/18 22:20 06:07 06:07 WBC 8.0 RBC 3.27 L Hgb 9.1 L Hct 27.6 L MCV 84.3 MCH 27.7 MCHC 32.8 RDW 13.3 Plt Count 307 MPV 6.2 L Neut % (Auto) 63.3 Lymph % (Auto) 20.2 [place] % (Auto) 15.6 H Eos % (Auto) 0.6 Baso % (Auto) 0.3 Neut # (Auto) 5.1 Lymph # (Auto) 1.6 [place] # (Auto) 1.3 H Eos # (Auto) 0.1 Baso # (Auto) 0.0 WBC Differential . Differential Comment Auto diff final Sodium Potassium Chloride Carbon Dioxide Anion Gap BUN Creatinine Estimated GFR Random Glucose Hemoglobin A1c 5.6 Calcium Phosphorus Magnesium Total Bilirubin AST ALT Alkaline Phosphatase Total Protein Albumin TSH Free T4 Urine Color Yellow Urine Clarity Clear Urine pH 6.0 Ur Specific [place] 1.017 Urine Protein Negative Urine Glucose (UA) Negative Urine Ketones 20 Urine Occult Blood Negative Urine Nitrate Negative Urine Bilirubin Negative Urine Urobilinogen 4 or greater Ur Leukocyte Esterase Negative Urine RBC 4 H Urine WBC 2 Ur Squamous Epith Cells <1 Urine Mucus Few H Micro UA Comment Culture not ind Ur Microscopic Review Not Reportable Urine Culture Comments Culture not ind 08/28/18 08/30/18 08/30/18 06:07 02:00 09:00 WBC RBC Hgb Hct MCV MCH MCHC RDW Plt Count MPV Neut % (Auto) Lymph % (Auto) [place] % (Auto) Eos % (Auto) Baso % (Auto) Neut # (Auto) Lymph # (Auto) [place] # (Auto) Eos # (Auto) Baso # (Auto) WBC Differential Differential Comment Sodium 138 137 Potassium 4.2 4.2 Chloride 103 103 Carbon Dioxide 26.8 25.7 Anion Gap 8 8 BUN 13 14 Creatinine 0.65 0.74 Estimated GFR Greater than 89 Greater than 89 Random Glucose 101 106 Hemoglobin A1c Calcium 7.8 L 8.1 L Phosphorus 3.3 Magnesium 2.1 2.2 Total Bilirubin 1.0 AST 86 H ALT 42 Alkaline Phosphatase 188 H Total Protein 6.6 Albumin 2.3 L TSH Less than 0.005 L Free T4 2.14 H Urine Color Yellow Urine Clarity Clear Urine pH 6.0 Ur Specific [place] 1.010 Urine Protein Negative Urine Glucose (UA) Negative Urine Ketones Trace H Urine Occult Blood Small H Urine Nitrate Negative Urine Bilirubin Negative Urine Urobilinogen 4 or greater Ur Leukocyte Esterase Negative Urine RBC 1 Urine WBC 1 Ur Squamous Epith Cells Urine Mucus Few H Micro UA Comment Ur Microscopic Review Not Reportable Urine Culture Comments 08/30/18 09:08 WBC 9.8 RBC 3.08 L Hgb 8.5 L Hct 25.6 L MCV 83.2 MCH 27.5 MCHC 33.1 RDW 13.5 Plt Count 330 MPV 6.2 L Neut % (Auto) 71.4 H Lymph % (Auto) 16.6 [place] % (Auto) 11.8 H Eos % (Auto) 0.1 Baso % (Auto) 0.1 Neut # (Auto) 7.0 Lymph # (Auto) 1.6 [place] # (Auto) 1.1 H Eos # (Auto) 0.0 Baso # (Auto) 0.0 WBC Differential . Differential Comment Auto diff final Sodium Potassium Chloride Carbon Dioxide Anion Gap BUN Creatinine Estimated GFR Random Glucose Hemoglobin A1c Calcium Phosphorus Magnesium Total Bilirubin AST ALT Alkaline Phosphatase Total Protein Albumin TSH Free T4 Urine Color Urine Clarity Urine pH Ur Specific [place] Urine Protein Urine Glucose (UA) Urine Ketones Urine Occult Blood Urine Nitrate Urine Bilirubin Urine Urobilinogen Ur Leukocyte Esterase Urine RBC Urine WBC Ur Squamous Epith Cells Urine Mucus Micro UA Comment Ur Microscopic Review Urine Culture Comments Result Diagrams: 08/30/18 09:08 08/30/18 09:00 Microbiology: Microbiology 08/29/18 20:35 Aerobic Blood Culture - Preliminary Blood - Peripheral No growth in 1 day Anaerobic Blood Culture - Preliminary No growth in 1 day 08/29/18 20:25 Aerobic Blood Culture - Preliminary Blood - Peripheral No growth in 1 day Anaerobic Blood Culture - Preliminary No growth in 1 day 08/27/18 13:20 Aerobic Blood Culture - Preliminary Blood - Peripheral No growth in 3 days Anaerobic Blood Culture - Preliminary No growth in 3 days 08/27/18 13:27 Aerobic Blood Culture - Preliminary Blood - Peripheral No growth in 3 days Anaerobic Blood Culture - Preliminary No growth in 3 days Imaging: Abdomen/Pelvis CT 08/25/18 07:30 CONCLUSION: 1. Numerous scattered new low-attenuation liver lesions characteristic of metastasis. 2. Evidence of prior bowel resection. 3. Status post cholecystectomy. There is a small amount of air in the central biliary system. Soft Tissue Neck CT 08/25/18 07:30 CONCLUSION: 1. Probable large goiter with both cystic and solid elements largest on the left neck. 2. Correlation suggested. Chest CT 08/26/18 00:00 CONCLUSION: 1. Mild emphysema without infiltrate or mass. 2. Multiple metastatic lesions in the liver. 3. Heterogeneous enlarged thyroid gland containing multiple nodules greater on the left. Liver Biopsy Ultrasound 08/26/18 00:00 CONCLUSION: 1. Uncomplicated ultrasound-guided biopsy of the patient's liver metastatic disease. Chest X-Ray 08/29/18 00:00 CONCLUSION: No pneumonia or other acute cardiopulmonary disease demonstrated. Procedures: 08/26/1836-[id number] biopsy of the liver. Patient/Family Conference Issues Discussed: * Palliative care role, purpose, approach * Additional medical, psychosocial, and spiritual history * Patients general health, functional status, and cognitive changes in the months leading up to the current hospitalization * Patient/family understanding of the current medical problems * Patient/family understanding of prognosis * Patients goals of care as best understood from advance directives and/or conversations and/or values * Current medical treatment options and benefits/burdens of those options * Likely scenarios comparing ongoing aggressive care with a transition to comfort measures only * Questions answered to the best of my ability * Palliative care contact information provided Assessment and Plan - Disease Oriented Problem List (1) Liver metastasis (2) Thyroid mass - Symptom Scale (1) Pain 0-10 Scale: 2 Comment: Patient came in with complaint of diffuse right upper quadrant abdominal and right flank pain. Pertinent Non-Medical Issues: Psychosocial: Patient is originally from [place]. Patient moved to [place] in 2005. Patient is . His lives in [place]. He has 4 daughters ( Samantha Nash-lives in [facility], Radha Nash and [facility]) and 1 son. 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 He would like to call back to [place] where most of his family is. Patient`s passport . He would like assistance with a formal letter from the hospital stating his terminal diagnosis , so that he can be apply for emergency travelling documents. Important Contacts: [facility]- Xiomy Avendano-granddaughter [phone] Daughter-Saad Garcia [phone] Niece- Jess Hogue [phone] home Prognosis: Mr. Nash is a 72-year-old male with a medical history of gallstone, neck mass (possible goiter) who presented to the emergency room on 08/25/18 with complaints of persistent right upper quadrant abdominal diffuse pain for approximately 3 weeks. Patient underwent ultrasound-guided biopsy of the liver on 08/26/18. Pathology revealed metastatic poorly differentiated carcinoma, most consistent with metastatic pancreatic carcinoma. Given recent diagnosis and patient's choice of not pursuing chemotherapy, patient remains at high risk for further complications, deterioration and decline. . Code Status: Full Code Plan: PLAN: Legal decision maker: Patient is able to participate in medical decision making. In the event that he is incapacitated he designated his granddaughter Romana Stauffer as his healthcare surrogate. Patient has requested to have his healthcare surrogate involved in all decision-making. Goals: Given recent diagnosis, patient and family have agreed not to pursue chemotherapy. Patient`s granddaughter states that she is aware of chemotherapy complications and as family they would like patient to travel back to [place] as soon as possible before his symptoms get worse. Patient is originally from [place] and most of his family is in [place]. Family is requesting a formal letter from the hospital which states patient's terminal diagnosis, to assist him with obtaining travel documents to [place] since his passport . CODE STATUS: Full code SYMPTOMS: * Pain: Patient came in with complaint of diffuse right upper quadrant abdominal and right flank pain. Currently patient denying pain rating pain 2 out of 10. Currently managed with hydrocodone/acetaminophen 5/325 every 4 hours prn. Patient sparingly needing pain medications. Continue monitoring for pain. Palliative care will continue to follow the patient during hospital course as condition evolves, to assist patient/decision-maker with understanding of their medical conditions, weighing benefits/burdens of treatment options, for clarification of goals of treatment. Additionally will assist with any symptoms of palliative concern Appreciation Thank you for the opportunity to participate in the care of Kaushik Nash. Attestation Attestation: To help prompt me to consider important information that might be impacting today's encounter and assessment, information from prior notes written by myself or my colleagues may have been "brought forward" into today's note. My signature on this note, however, is an attestation that I personally performed the exam, history, and/or decision-making noted today, and, unless otherwise indicated, the interactions with patient, family, and staff as well as the review of records all occurred today. I also attest that the listed assessment and stated plan reflect my best clinical judgment today based on the combination of historical information, prior notes, and today's exam/ interactions. When time spent is documented, it refers only to time spent today by the signer, or if indicated, combined time spent today by collaborating physician/nurse practitioner.
--- NOTE | 2018-08-30 17:00 | P.PNIM ---
Subjective Interval history: Patient does not have any complaints today. He is requesting that I speak to his daughter who was in [place]. Physical Exam Vital signs: Vital Signs 08/29/18 17:36 08/29/18 19:55 08/29/18 20:04 Temperature 100.1 F H 101.6 F H Pulse Rate 100 H 109 H Respiratory Rate 18 Blood Pressure 118/62 Pulse Oximetry 98 08/30/18 00:00 08/30/18 00:06 08/30/18 04:04 Temperature 99.1 F Pulse Rate 87 88 92 H Respiratory Rate 16 Blood Pressure 108/57 L Pulse Oximetry 95 08/30/18 04:24 08/30/18 08:00 08/30/18 09:05 Temperature 100.7 F H 98.5 F Pulse Rate 101 H 96 H 103 H Respiratory Rate 18 16 Blood Pressure 129/62 152/81 H Pulse Oximetry 98 98 08/30/18 12:00 08/30/18 12:26 08/30/18 16:00 Temperature 98.8 F 99.7 F H Pulse Rate 104 H 104 H 105 H Respiratory Rate 16 18 Blood Pressure 117/56 L 125/62 Pulse Oximetry 98 99 Intake & Output 08/29/18 08/30/18 08/30/18 18:59 06:59 18:59 Intake Total 2216 / 2216 1055 / 1055 290 / 290 Output Total 915 / 915 900 / 900 Balance 1301 / 1301 155 / 155 290 / 290 Weight 62.6 kg Intake: IV 1500 / 1500 1055 / 1055 50 / 50 NS Inj 1,000 ML @ 84 mls/hr IV. 1500 / 1500 1000 / 1000 CONT .[id number] ELIGIO Rx#:[id number] Zosyn 3.375 GM Premix 50 ML @ 55 / 55 50 / 50 100 mls/hr IV.SIG Q6H ELIGIO Rx#: [id number] Oral 716 / 716 240 / 240 Output: Urine 915 / 915 900 / 900 Other: Date of Last Bowel Movement 08/28/18 08/30/18 08/30/18 # Bowel Movements 1 Narrative: General patient has no complaints today. HEENT extraocular movements are intact, clear oropharyngeal mucosa, no JVD Cardiovascular S1-S2 audible, RRR, no murmurs rubs or gallops Respiratory clear to auscultation bilaterally Abdomen soft, nontender, nondistended, normal bowel sounds Extremities no edema 2+ distal pulses in bilateral upper and lower extremities Neuro cranial nerves II through XII intact Results - Labs CBC & Chem 7: 08/30/18 09:08 08/30/18 09:00 Laboratory Results - last 24 hr 08/30/18 08/30/18 08/30/18 02:00 09:00 09:08 WBC 9.8 RBC 3.08 L Hgb 8.5 L Hct 25.6 L MCV 83.2 MCH 27.5 MCHC 33.1 RDW 13.5 Plt Count 330 MPV 6.2 L Neut % (Auto) 71.4 H Lymph % (Auto) 16.6 [place] % (Auto) 11.8 H Eos % (Auto) 0.1 Baso % (Auto) 0.1 Neut # (Auto) 7.0 Lymph # (Auto) 1.6 [place] # (Auto) 1.1 H Eos # (Auto) 0.0 Baso # (Auto) 0.0 WBC Differential . Differential Comment Auto diff final Sodium 137 Potassium 4.2 Chloride 103 Carbon Dioxide 25.7 Anion Gap 8 BUN 14 Creatinine 0.74 Estimated GFR Greater than 89 Random Glucose 106 Calcium 8.1 L Magnesium 2.2 Urine Color Yellow Urine Clarity Clear Urine pH 6.0 Ur Specific [place] 1.010 Urine Protein Negative Urine Glucose (UA) Negative Urine Ketones Trace H Urine Occult Blood Small H Urine Nitrate Negative Urine Bilirubin Negative Urine Urobilinogen 4 or greater Ur Leukocyte Esterase Negative Urine RBC 1 Urine WBC 1 Urine Mucus Few H Ur Microscopic Review Not Reportable Microbiology 08/29/18 20:35 Blood - Peripheral Aerobic Blood Culture - Preliminary No growth in 1 day 08/29/18 20:35 Blood - Peripheral Anaerobic Blood Culture - Preliminary No growth in 1 day 08/29/18 20:25 Blood - Peripheral Aerobic Blood Culture - Preliminary No growth in 1 day 08/29/18 20:25 Blood - Peripheral Anaerobic Blood Culture - Preliminary No growth in 1 day 08/27/18 13:20 Blood - Peripheral Aerobic Blood Culture - Preliminary No growth in 3 days 08/27/18 13:20 Blood - Peripheral Anaerobic Blood Culture - Preliminary No growth in 3 days 08/27/18 13:27 Blood - Peripheral Aerobic Blood Culture - Preliminary No growth in 3 days 08/27/18 13:27 Blood - Peripheral Anaerobic Blood Culture - Preliminary No growth in 3 days - Imaging Impressions Chest X-Ray 08/29/18 00:00 CONCLUSION: No pneumonia or other acute cardiopulmonary disease demonstrated. - Procedures LIVER BIOPSY BY IR 11-1 Assessment and Plan - Plan This patient is a 72-year-old -[place] male who came into the emergency room with complaints of abdominal pain. The patient was found to have neck swelling and evidence of goiter abdominal imaging shows numerous scattered liver lesions characteristic of metastatic disease. 1. Lesions of the liver likely metastatic disease 2. Abdominal pain Patient's pathology returned and shows metastatic pancreatic carcinoma. CA19-9 elevated Patient currently does not have insurance and will need scheduled follow-up with outpatient oncology for further management recommendations. I discussed the case with heme oncology today. Case was also discussed with case management as the patient is not a [place] citizen and does not have insurance at this time. We will continue with pain medications for today. Otherwise the patient is tolerating a p.o. diet and does not have any other significant complaints. 3. Fevers Patient has had 4 febrile episodes in the past 24 hours. He denies having a cough, no dysuria, no erythema of his skin. Currently have no source of Urinalysis negative, chest imaging negative, blood cultures drawn again as these are new fevers. Patient started on IV antibiotics. We will continue to monitor the patient. Lovenox started for DVT prophylaxis. Discharge planning, I am currently working with case management regarding this patient's social issues as he is not a [place] citizen and does not have insurance however has a diagnosis of cancer.
--- NOTE | 2018-08-30 17:19 | P.PNONC ---
Subjective Interval history: Earlier today Dr. Cason discussed pathology results with the patient. Patient is from [place], where all of his children and live. Palliative care was consulted and met with the patient in regards to goals. Patient denies any pain, nausea vomiting or diarrhea. He states "I just want to go home to my family, if there is no cure for what I have I would rather with my family then alone." Objective Vital Signs/Intake & Output: Vital Signs 08/29/18 17:36 08/29/18 19:55 08/29/18 20:04 Temperature 100.1 F H 101.6 F H Pulse Rate 100 H 109 H Respiratory Rate 18 Blood Pressure 118/62 Pulse Oximetry 98 08/30/18 00:00 08/30/18 00:06 08/30/18 04:04 Temperature 99.1 F Pulse Rate 87 88 92 H Respiratory Rate 16 Blood Pressure 108/57 L Pulse Oximetry 95 08/30/18 04:24 08/30/18 08:00 08/30/18 09:05 Temperature 100.7 F H 98.5 F Pulse Rate 101 H 96 H 103 H Respiratory Rate 18 16 Blood Pressure 129/62 152/81 H Pulse Oximetry 98 98 08/30/18 12:00 08/30/18 12:26 08/30/18 16:00 Temperature 98.8 F 99.7 F H Pulse Rate 104 H 104 H 105 H Respiratory Rate 16 18 Blood Pressure 117/56 L 125/62 Pulse Oximetry 98 99 Intake & Output 08/29/18 08/30/18 08/30/18 18:59 06:59 18:59 Intake Total 2216 / 2216 1055 / 1055 290 / 290 Output Total 915 / 915 900 / 900 Balance 1301 / 1301 155 / 155 290 / 290 Weight 62.6 kg Intake: IV 1500 / 1500 1055 / 1055 50 / 50 NS Inj 1,000 ML @ 84 mls/hr IV. 1500 / 1500 1000 / 1000 CONT .[id number] [facility] Rx#:[id number] Zosyn 3.375 GM Premix 50 ML @ 55 / 55 50 / 50 100 mls/hr IV.SIG Q6H [facility] Rx#: [id number] Oral 716 / 716 240 / 240 Output: Urine 915 / 915 900 / 900 Other: Date of Last Bowel Movement 08/28/18 08/30/18 08/30/18 # Bowel Movements 1 Result Diagrams: 08/30/18 09:08 08/30/18 09:00 Laboratory Results: Laboratory Results - last 24 hr 08/30/18 08/30/18 08/30/18 02:00 09:00 09:08 WBC 9.8 RBC 3.08 L Hgb 8.5 L Hct 25.6 L MCV 83.2 MCH 27.5 MCHC 33.1 RDW 13.5 Plt Count 330 MPV 6.2 L Neut % (Auto) 71.4 H Lymph % (Auto) 16.6 [place] % (Auto) 11.8 H Eos % (Auto) 0.1 Baso % (Auto) 0.1 Neut # (Auto) 7.0 Lymph # (Auto) 1.6 [place] # (Auto) 1.1 H Eos # (Auto) 0.0 Baso # (Auto) 0.0 WBC Differential . Differential Comment Auto diff final Sodium 137 Potassium 4.2 Chloride 103 Carbon Dioxide 25.7 Anion Gap 8 BUN 14 Creatinine 0.74 Estimated GFR Greater than 89 Random Glucose 106 Calcium 8.1 L Magnesium 2.2 Urine Color Yellow Urine Clarity Clear Urine pH 6.0 Ur Specific [place] 1.010 Urine Protein Negative Urine Glucose (UA) Negative Urine Ketones Trace H Urine Occult Blood Small H Urine Nitrate Negative Urine Bilirubin Negative Urine Urobilinogen 4 or greater Ur Leukocyte Esterase Negative Urine RBC 1 Urine WBC 1 Urine Mucus Few H Ur Microscopic Review Not Reportable Culture Results: Microbiology 08/29/18 20:35 Aerobic Blood Culture - Preliminary Blood - Peripheral No growth in 1 day Anaerobic Blood Culture - Preliminary No growth in 1 day 08/29/18 20:25 Aerobic Blood Culture - Preliminary Blood - Peripheral No growth in 1 day Anaerobic Blood Culture - Preliminary No growth in 1 day 08/27/18 13:20 Aerobic Blood Culture - Preliminary Blood - Peripheral No growth in 3 days Anaerobic Blood Culture - Preliminary No growth in 3 days 08/27/18 13:27 Aerobic Blood Culture - Preliminary Blood - Peripheral No growth in 3 days Anaerobic Blood Culture - Preliminary No growth in 3 days Imaging Studies: Impressions Chest X-Ray 08/29/18 00:00 CONCLUSION: No pneumonia or other acute cardiopulmonary disease demonstrated. Medications: Active Medications Generic Name Dose Route Start Last Admin Trade Name Freq PRN Reason Stop Dose Admin Acetaminophen 650 mg 08/25/18 16:46 11/04/18 20:42 Tylenol PO 650 mg Q4H PRN Administration Temp > 100.4 Hydrocodone Bitart/Acetaminophen 1 tab 08/25/18 17:19 08/28/18 21:02 [place] 5/325 PO 1 tab Q4H PRN Administration pain 2-10 Al Hydroxide/Mg Hydroxide 30 ml 08/25/18 12:11 08/30/18 10:46 Milk Of Magnesia Liq PO 30 ml Q12H PRN Administration Mild Constipation Enoxaparin Sodium 40 mg 08/29/18 09:00 08/30/18 10:46 Lovenox Inj SQ 40 mg DAILY ELIGIO Administration Sodium Chloride 1,000 mls @ 84 mls/hr 08/25/18 16:39 08/30/18 04:30 Ns Inj IV.CONT 84 mls/hr .[id number] ELIGIO Administration Piperacillin/Tazobactam/Dextrose 50 mls @ 100 mls/hr 08/30/18 05:00 08/30/18 11:20 Zosyn 3.375 Gm Premix IV.SIG Infused Q6H ELIGIO Infusion Ondansetron HCl 4 mg 08/25/18 16:46 08/29/18 17:17 Zofran Inj IV.PUSH 4 mg Q6H PRN Administration NAUSEA OR VOMITING Senna/Docusate Sodium 1 tab 08/25/18 21:00 08/30/18 10:47 Alexandra-Colace PO Not Given BID ELIGIO Sodium Chloride 2 ml 08/25/18 21:00 08/30/18 09:06 Ns Flush IV.FLUSH Not Given BID ELIGIO Objective Remarks: GENERAL: Well-nourished, well-developed elderly male patient, in no acute distress. SKIN: Warm and dry. HEAD: Normocephalic. EYES: No scleral icterus. No injection or drainage. NECK: Supple, trachea midline. +goiter appearing mass. CARDIOVASCULAR: Regular rate and rhythm without murmurs. RESPIRATORY: Breath sounds equal bilaterally. No accessory muscle use. GASTROINTESTINAL: Abdomen soft, non-tender, nondistended. EXTREMITIES: No cyanosis, or edema. MUSCULOSKELETAL: Adequate muscle tone. NEUROLOGICAL: No obvious focal deficit. Awake, alert, and oriented x3. PSYCHIATRIC: Appropriate mood and affect; insight and judgment normal. Assessment/Plan (1) Liver metastasis Code(s): C78.7 - Secondary malignant neoplasm of liver and intrahepatic bile duct Status: Acute (2) Thyroid mass Code(s): E07.9 - Disorder of thyroid, unspecified Status: Acute - Plan Mr. Nash is a pleasant 72-year-old gentleman, who was found to have multiple numerous scattered new low-attenuation liver lesions characteristic of metastasis. He is status post biopsy August 26, results pending. CT of the chest did not show any primary tumor or metastatic disease. Recommendations: 1. Liver lesions, pathology metastatic poorly differentiated carcinoma. Most consistent with metastatic pancreatic carcinoma. Staining pattern consistent with pancreatic primary, could also be seen in hepatobiliary primary. AFP 2.6, CEA 4.3, CA 19-9 elevated 73.4. Results discussed with the patient. [place] is currently [place] states alone, as his and kids live in [place]. He wishes to be discharged and go home to [place]. He is fearful if he had treatment here it would make him too weak to travel. He has requested a letter stating his current medical condition, as his passport has , and he would like to get home as soon as possible. Case management is working on this. 2. We appreciate palliative care's assistance in regards to patient's wishes and goals. 3. Once case management is able to obtain letter per patient's request, he can be cleared for discharge from an oncology standpoint. - Attending Statement The exam, history, and the medical decision-making described in the above note were completed with the assistance of the mid-level provider. I reviewed and agree with the findings presented. I attest that I had a [id number] encounter with the patient on the same day, and personally performed and documented my assessment and findings in the medical record. Pt still has abdominal pain but controlled. 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 Prognosis is poor and the disease is not curable. I have extensive discussion with pt regarding his prognosis and treatment option. I told him treatment involves palliative chemotherapy. However, all his family is in [place] and he has no social support locally. He would think over his option but most likely would want to go back to his family in [facility].
[2018-08-30] MEDS ORDERED: Vancomycin Inj 1,000 MG in Sodium Chlor 0.9% Inj 250 ML IV.SIG SCH (20:00)
[2018-08-30] MEDS: Acetaminophen 325 MG Tablet PO PRN (20:08)
[2018-08-31] MEDS: Piperacil/Tazo 3.375 GM Premix 50 ML IV.SIG SCH ×2 (05:30→11:00)
[2018-08-31] MEDS: Senna/Docusate Sodium 8.6/50 MG Tablet PO SCH (08:50)
[2018-08-31] MEDS: Enoxaparin Inj 40 MG/0.4 ML Syringe SQ SCH (08:51)
[2018-08-31] MEDS: Sodium Chloride 0.9% 2 ML Flush BID IV.FLUSH SCH (08:51)
[2018-08-31] MEDS ORDERED: Baclofen 10 MG Tablet PO SCH ×2 (09:33→14:00)
--- NOTE | 2018-08-31 09:41 | P.PNONC ---
Subjective Interval history: T-max 101.5 F. Patient reports hiccups. No other complaints at this time. Discussed with case management, she has spoke to the consulate and received instructions as to what the patient and his POA should do in regards to his passport/visa.Payal, will notify POA the telephone number at [facility]. They will need to contact them, provide proof of [facility] citizenship and they will issue emergent travel privileges. Objective Vital Signs/Intake & Output: Vital Signs 08/30/18 12:00 08/30/18 12:26 08/30/18 16:00 Temperature 98.8 F 99.7 F H Pulse Rate 104 H 104 H 105 H Respiratory Rate 16 18 Blood Pressure 117/56 L 125/62 Pulse Oximetry 98 99 08/30/18 19:52 08/30/18 20:00 08/30/18 23:57 Temperature 101.5 F H 98.1 F Pulse Rate 101 H 102 H 84 Respiratory Rate 18 18 Blood Pressure 108/52 L 132/74 Pulse Oximetry 97 98 08/31/18 00:02 08/31/18 03:37 08/31/18 04:00 Temperature 98.4 F Pulse Rate 97 H 98 H 101 H Respiratory Rate 16 Blood Pressure 104/49 L Pulse Oximetry 100 08/31/18 07:59 08/31/18 08:43 Temperature 100.8 F H Pulse Rate 98 H 98 H Respiratory Rate 18 Blood Pressure 112/55 L Pulse Oximetry 99 Intake & Output 08/30/18 08/31/18 08/31/18 18:59 06:59 18:59 Intake Total 1510 / 1510 630 / 630 Output Total 350 / 350 1050 / 1050 Balance 1160 / 1160 -420 / -420 Weight 62.8 kg Intake: IV 1150 / 1150 430 / 430 NS Inj 1,000 ML @ 84 mls/hr IV. 1000 / 1000 CONT .[id number] ELIGIO Rx#:[id number] Zosyn 3.375 GM Premix 50 ML @ 50 / 50 165 / 165 100 mls/hr IV.SIG Q6H ELIGIO Rx#: [id number] Vancomycin Inj 1,000 MG In NS 265 / 265 Inj 250 ML @ 250 mls/hr IV.SIG Q24H ELIGIO Rx#:[id number] Rocephin Inj 1,000 MG In NS Inj 100 / 100 100 ML @ 200 mls/hr IV.SIG Q24H [facility] Rx#:[id number] Oral 360 / 360 200 / 200 Output: Urine 350 / 350 1050 / 1050 Other: Date of Last Bowel Movement 08/30/18 08/31/18 # Bowel Movements 1 Result Diagrams: 08/30/18 09:08 08/30/18 09:00 Laboratory Results: Laboratory Results - last 24 hr 08/30/18 08/30/18 09:00 09:08 WBC 9.8 RBC 3.08 L Hgb 8.5 L Hct 25.6 L MCV 83.2 MCH 27.5 MCHC 33.1 RDW 13.5 Plt Count 330 MPV 6.2 L Neut % (Auto) 71.4 H Lymph % (Auto) 16.6 [place] % (Auto) 11.8 H Eos % (Auto) 0.1 Baso % (Auto) 0.1 Neut # (Auto) 7.0 Lymph # (Auto) 1.6 [place] # (Auto) 1.1 H Eos # (Auto) 0.0 Baso # (Auto) 0.0 WBC Differential . Differential Comment Auto diff final Sodium 137 Potassium 4.2 Chloride 103 Carbon Dioxide 25.7 Anion Gap 8 BUN 14 Creatinine 0.74 Estimated GFR Greater than 89 Random Glucose 106 Calcium 8.1 L Magnesium 2.2 Culture Results: Microbiology 08/29/18 20:35 Aerobic Blood Culture - Preliminary Blood - Peripheral No growth in 1 day Anaerobic Blood Culture - Preliminary No growth in 1 day 08/29/18 20:25 Aerobic Blood Culture - Preliminary Blood - Peripheral No growth in 1 day Anaerobic Blood Culture - Preliminary No growth in 1 day 08/27/18 13:20 Aerobic Blood Culture - Preliminary Blood - Peripheral No growth in 3 days Anaerobic Blood Culture - Preliminary No growth in 3 days 08/27/18 13:27 Aerobic Blood Culture - Preliminary Blood - Peripheral No growth in 3 days Anaerobic Blood Culture - Preliminary No growth in 3 days Medications: Active Medications Generic Name Dose Route Start Last Admin Trade Name Freq PRN Reason Stop Dose Admin Acetaminophen 650 mg 08/25/18 16:46 08/30/18 20:08 Tylenol PO 650 mg Q4H PRN Administration Temp > 100.4 Hydrocodone Bitart/Acetaminophen 1 tab 08/25/18 17:19 08/28/18 21:02 [place] 5/325 PO 1 tab Q4H PRN Administration pain 2-10 Al Hydroxide/Mg Hydroxide 30 ml 08/25/18 12:11 08/30/18 10:46 Milk Of Magnesia Liq PO 30 ml Q12H PRN Administration Mild Constipation Enoxaparin Sodium 40 mg 08/29/18 09:00 08/31/18 08:51 Lovenox Inj SQ 40 mg DAILY ELIGIO Administration Sodium Chloride 1,000 mls @ 84 mls/hr 08/25/18 16:39 08/30/18 20:05 Ns Inj IV.CONT 84 mls/hr .[id number] ELIGIO Administration Piperacillin/Tazobactam/Dextrose 50 mls @ 100 mls/hr 08/30/18 05:00 08/31/18 06:08 Zosyn 3.375 Gm Premix IV.SIG Infused Q6H ELIGIO Infusion Ceftriaxone Sodium 1,000 mg/ 100 mls @ 200 mls/hr 08/30/18 18:00 08/30/18 18: 55 Sodium Chloride IV.SIG Infused Q24H ELIGIO Infusion Vancomycin HCl 1,000 mg/ 250 mls @ 250 mls/hr 08/30/18 20:00 08/30/18 22:34 Sodium Chloride IV.SIG Infused Q24H ELIGIO Infusion Ondansetron HCl 4 mg 08/25/18 16:46 08/29/18 17:17 Zofran Inj IV.PUSH 4 mg Q6H PRN Administration NAUSEA OR VOMITING Senna/Docusate Sodium 1 tab 08/25/18 21:00 08/31/18 08:50 Alexandra-Colace PO Not Given BID ELIGIO Sodium Chloride 2 ml 08/25/18 21:00 08/31/18 08:51 Ns Flush IV.FLUSH 2 ml BID ELIGIO Administration Objective Remarks: GENERAL: Well-nourished, well-developed elderly male patient, in no acute distress. SKIN: Warm and dry. HEAD: Normocephalic. EYES: No scleral icterus. No injection or drainage. NECK: Supple, trachea midline. +goiter appearing mass. CARDIOVASCULAR: Regular rate and rhythm without murmurs. RESPIRATORY: Breath sounds equal bilaterally. No accessory muscle use. GASTROINTESTINAL: Abdomen soft, non-tender, nondistended. EXTREMITIES: No cyanosis, or edema. MUSCULOSKELETAL: Adequate muscle tone. NEUROLOGICAL: No obvious focal deficit. Awake, alert, and oriented x3. PSYCHIATRIC: Appropriate mood and affect; insight and judgment normal. Assessment/Plan (1) Liver metastasis Code(s): C78.7 - Secondary malignant neoplasm of liver and intrahepatic bile duct Status: Acute (2) Thyroid mass Code(s): E07.9 - Disorder of thyroid, unspecified Status: Acute - Plan Mr. Nash is a pleasant 72-year-old gentleman, who was found to have multiple numerous scattered new low-attenuation liver lesions characteristic of metastasis. He is status post biopsy August 26, results pending. CT of the chest did not show any primary tumor or metastatic disease. Recommendations: 1. Liver lesions, pathology metastatic poorly differentiated carcinoma. Most consistent with metastatic pancreatic carcinoma. Staining pattern consistent with pancreatic primary, could also be seen in hepatobiliary primary. AFP 2.6, CEA 4.3, CA 19-9 elevated 73.4. Results discussed with the patient. Pt declines palliative treatment, he wishes to return home to [place]. 2. Payal, from case management has contacted the [facility] consulate, she received instructions for the patient in regards to the process of traveling back to [place] with an passport/visa. She will notify his POAXiomy , and give her these instructions. 3. Fevers, T-max 101.5 F, blood cultures negative times 3 days, currently on ceftriaxone and vancomycin. These may be tumor fevers. Patient could be discharged home on oral dose of antibiotics, we will defer this to attending. 4. Patient cleared from an oncology standpoint for discharge. - Attending Statement The exam, history, and the medical decision-making described in the above note were completed with the assistance of the mid-level provider. I reviewed and agree with the findings presented. I attest that I had a [id number] encounter with the patient on the same day, and personally performed and documented my assessment and findings in the medical record. Patient's abdominal pain is controlled. He is anxious to go home. He does not want any palliative chemotherapy. He wants to go back to [place] to be with his family. manager behavioral is assisting with discharge planning. Patient still has intermittent fever which could be tumor fever. He has been on antibiotic and his culture has been negative. He can be discharged from oncology standpoint.
[2018-08-31] MEDS: Sod Chloride 0.9% Inj 1,000 ML IV.CONT SCH (11:01)
--- NOTE | 2018-08-31 16:56 | P.DS ---
Date of admission: 08/27/18 12:49 Primary care physician: No Primary Care Physician Brief History from admission: Patient is a pleasant frail 72 yo AA male, who presented to the emergency department complaining of abdominal pain. Pain is described as being diffuse, started approximately 3 weeks ago, associated with decreased appetite, pain is intermittent, approximately 30 minutes to 1 hour duration, no alleviating or aggravating factors. States he has had similar pain like this in the past. The patient was found to have scattered lesions on the liver which were concerning for metastatic DS: Summary Hospital Course: This patient is a 72-year-old [facility] male who came into our emergency department with complaints of abdominal pain. The patient was found to have neck swelling as well as evidence of goiter. The patient's abdominal imaging showed numerous scattered liver lesions characteristic of metastatic disease. 1. Liver lesions pathologically metastatic pancreatic carcinoma 2. Systemic inflammatory response syndrome possibly secondary to #1 Patient had abdominal imaging as mentioned above which showed findings consistent with metastatic pancreatic carcinoma. Heme oncology was consulted to evaluate the patient. The case was discussed with the patient and heme oncology regarding his condition. The patient lives in the [facility] alone as his and kids are in [place]. The patient wishes to be discharged and to go back to [place] for follow-up and care. The patient had a passport which has . The patient continued to have fevers over the past few days and a workup was initiated as there was a concern for sepsis. Chest x-ray is negative, urinalysis negative, blood cultures up until now are negative. I discussed these findings with the patient and told him that I would consult infectious disease to evaluate the patient prior to his discharge. He states that he wants to go home today and he has a flight to catch for this . The risks of leaving AGAINST MEDICAL ADVICE were discussed with the patient however he is adamant about leaving. The patient is leaving AGAINST MEDICAL ADVICE. He says he will follow-up with a doctor in [place] this week. - Time Spent with Patient Total time spent providing and/or coordinating discharge services: Less than 30 minutes - Quality: VTE Deep Vein Thrombosis/Pulmonary Embolism Present on Admission: No Exam Vital signs: Vital Signs 08/30/18 19:52 08/30/18 20:00 08/30/18 23:57 Temperature 101.5 F H 98.1 F Pulse Rate 101 H 102 H 84 Respiratory Rate 18 18 Blood Pressure 108/52 L 132/74 Pulse Oximetry 97 98 08/31/18 00:02 08/31/18 03:37 08/31/18 04:00 Temperature 98.4 F Pulse Rate 97 H 98 H 101 H Respiratory Rate 16 Blood Pressure 104/49 L Pulse Oximetry 100 08/31/18 07:59 08/31/18 08:43 08/31/18 12:40 Temperature 100.8 F H 100.4 F H Pulse Rate 98 H 98 H 93 H Respiratory Rate 18 16 Blood Pressure 112/55 L 139/71 Pulse Oximetry 99 98 08/31/18 15:47 Temperature 99.9 F H Pulse Rate 102 H Respiratory Rate 16 Blood Pressure 123/56 L Pulse Oximetry 99 Intake & Output 08/30/18 08/31/18 08/31/18 18:59 06:59 18:59 Intake Total 1510 / 1510 630 / 630 55 / 55 Output Total 350 / 350 1050 / 1050 Balance 1160 / 1160 -420 / -420 55 / 55 Weight 62.8 kg Intake: IV 1150 / 1150 430 / 430 55 / 55 NS Inj 1,000 ML @ 84 mls/hr IV. 1000 / 1000 0 / 0 CONT .[id number] ELIGIO Rx#:[id number] Zosyn 3.375 GM Premix 50 ML @ 50 / 50 165 / 165 55 / 55 100 mls/hr IV.SIG Q6H ELIGIO Rx#: [id number] Vancomycin Inj 1,000 MG In NS 265 / 265 Inj 250 ML @ 250 mls/hr IV.SIG Q24H ELIGIO Rx#:[id number] Rocephin Inj 1,000 MG In NS Inj 100 / 100 100 ML @ 200 mls/hr IV.SIG Q24H ELIGIO Rx#:[id number] Oral 360 / 360 200 / 200 Output: Urine 350 / 350 1050 / 1050 Other: Date of Last Bowel Movement 08/30/18 08/31/18 # Bowel Movements 1 Narrative: General patient in no acute distress, patient feels warm. HEENT extraocular movements are intact, clear oropharyngeal mucosa, no JVD Cardiovascular S1-S2 audible, RRR, no murmurs rubs or gallops Respiratory clear to auscultation bilaterally Abdomen soft, nontender, nondistended, normal bowel sounds Extremities no edema 2+ distal pulses in bilateral upper and lower extremities Neuro cranial nerves II through XII intact Results Procedures completed during hospitalization: LIVER BIOPSY BY IR 11-1 Labs on day of discharge: Preliminary micro results at discharge 08/29/18 20:35 Aerobic Blood Culture - Preliminary Blood - Peripheral No growth in 2 days Anaerobic Blood Culture - Preliminary No growth in 2 days 08/29/18 20:25 Aerobic Blood Culture - Preliminary Blood - Peripheral No growth in 2 days Anaerobic Blood Culture - Preliminary No growth in 2 days 08/27/18 13:20 Aerobic Blood Culture - Preliminary Blood - Peripheral No growth in 4 days Anaerobic Blood Culture - Preliminary No growth in 4 days 08/27/18 13:27 Aerobic Blood Culture - Preliminary Blood - Peripheral No growth in 4 days Anaerobic Blood Culture - Preliminary No growth in 4 days - Impressions ITS Impressions Abdomen/Pelvis CT 08/25/18 07:30 CONCLUSION: 1. Numerous scattered new low-attenuation liver lesions characteristic of metastasis. 2. Evidence of prior bowel resection. 3. Status post cholecystectomy. There is a small amount of air in the central biliary system. Soft Tissue Neck CT 08/25/18 07:30 CONCLUSION: 1. Probable large goiter with both cystic and solid elements largest on the left neck. 2. Correlation suggested. Chest CT 08/26/18 00:00 CONCLUSION: 1. Mild emphysema without infiltrate or mass. 2. Multiple metastatic lesions in the liver. 3. Heterogeneous enlarged thyroid gland containing multiple nodules greater on the left. Liver Biopsy Ultrasound 08/26/18 00:00 CONCLUSION: 1. Uncomplicated ultrasound-guided biopsy of the patient's liver metastatic disease. Chest X-Ray 08/29/18 00:00 CONCLUSION: No pneumonia or other acute cardiopulmonary disease demonstrated. Discharge Plan - Discharge Disposition Patient Disposition: Against Medical Advice - Discharge Condition Condition: Stable - Discharge Order Discharge Orders: AMA Discharge (Routine); Ordered 08/31/18 Ordered By: Alea Pino - Physicians Team Primary Care Provider: Primary Care Diana Morales Attending Provider: Alea Pino Other Providers: Jesse Cason MD ; Flakito Lopes MD
--- NOTE | 2018-08-31 16:56 | P.AMA ---
AMA Note AMA Statement: Patient Kaushik Nash has decided to leave the hospital against medical advice. This patient has the capacity to refuse care and understands the risks of leaving, including permanent disability and/or , and has had an opportunity to ask questions about his/her condition. The patient has been informed that he/she may return for care at any time, and follow up has been arranged/advised. Discharge Disposition: Against Medical Advice Patient Condition on Discharge: Stable
== END 2018-08-31 17:53 | disposition left against medical advice (07) ==
LOC: NEPC 07:11 → NEDA 07:11 → NEPGCP 12:39 → HCIN 08-27 15:26
PROVIDERS: ADMIT Hospitalist; ATTEND Hospitalist